=== PATIENT | male | born 1935 | race Caucasian/White ===

== ENCOUNTER 2018-05-18 05:31 | Inpatient (IN) ==
[2018-05-06 09:45] LABS: Basophils % 0.4 % (0.0-0.8); Eosinophils # 0.1 10*3/uL (0.0-0.87); Eosinophils % 0.7 % (0.00-10.9); Hematocrit 36.7 VOL% (42.0-52.0); Hemoglobin 12.2 GM/DL (14.0-18.0); Immature Granulocytes % 0.3 %; Immature Granulocytes Absolute 0.03 #; Lymphocytes # 2.1 10*3/uL (1.4-4.0); Lymphocytes % 23.9 % (21.2-54.2); Mean Corpuscular HGB Conc 33.2 GM/DL (32-36); Mean Corpuscular Hemoglobin 30 PG (27-34); Mean Corpuscular Volume 90.2 FL (87-102); Mean Platelet Volume 11.4 FL (9.6-12.0); Monocytes # 0.9 10*3/uL (0.11-0.8); Monocytes % 9.9 % (1.7-12.7); Neutrophils # 5.8 10*3/uL (1.4-7.4); Neutrophils % 64.8 % (38.7-73.9); Platelet Count 146 T/CUMM (130-400); Red Blood Count 4.07 MC/CUMM (3.8-5.5); Red Cell Distribution Width 14.1 % (9.3-17.3)
[2018-05-06 10:00] LABS: INR 1.4; PT Patient Result 14.8 SECS
[2018-05-06 10:04] LABS: Albumin 3.9 G/DL (3.4-5.0); Bilirubin,Total 1.1 MG/DL (0.2-1.0); Calcium 8.8 MG/DL (8.5-10.1); Osmolality,Calculated 282.4 MOS/KG (273-304); Potassium 4.5 MMOL/L (3.5-5.1); Total Protein 7.3 G/DL (6.4-8.3)
[2018-05-06 10:07] LABS: Partial Thromboplastin Time 45.3 SECS (0-40)
[2018-05-06 10:09] LABS: Apearance,Urine CLEAR (Clear); Bilirubin,Urine Negative (Negative); Blood, Urine Small mg/dL (Negative); Glucose,Urine (UA) Negative (Negative); Hyaline Casts,Urine 4 /LPF (0-3); Ketones,Urine Negative (Negative); Mucus,Urine Few /LPF (Occasional); Nitrite,Urine Negative (Negative); Protein,Urine Negative; RBC,Urine 4 /HPF (0-4); Urine Color Yellow (Yellow); Urine Specific Gravity 1.017 (1.001-1.035); Urine Urobilinogen < 2.0 EU/DL (0.2-1.0); WBC,Urine <1 /HPF (0-6)
[2018-05-18] MEDS ORDERED: VANCOMYCIN 1,000 MG VIAL ONE (06:28)
[2018-05-18] MEDS ORDERED: VANCOMYCIN INJ 1,000 MG in SODIUM CHLORIDE 0.9% 250 ML IV ONE (06:34)
[2018-05-18] MEDS ORDERED: ROPIVACAINE 0.5% 30 ML VIAL ONE (06:42)
[2018-05-18] MEDS ORDERED: BUPIVACAINE SPINAL 0.75% 2 ML AMP SPINAL ONE (06:49)
[2018-05-18] MEDS ORDERED: LACTATED RINGERS 1,000 ML IV SCH (07:00)
[2018-05-18] MEDS ORDERED: TRANEXAMIC ACID 1,000 MG/10 ML VIAL ONE (07:36)
[2018-05-18] MEDS ORDERED: BACITRACIN OINT 0.9 GM PACK TOP ONE (07:36)
[2018-05-18] MEDS ORDERED: ceFAZolin 1,000 MG VIAL ONE (07:36)
[2018-05-18] MEDS: LACTATED RINGERS 1,000 ML IV SCH ×2 (08:21→18:04)
[2018-05-18] MEDS ORDERED: DEXTROSE 50% 25 GM/50 ML VIAL IV PRN (08:50)
[2018-05-18] MEDS ORDERED: GLUCAGON 1 MG VIAL IM PRN (08:50)
[2018-05-18] MEDS ORDERED: ONDANSETRON 4 MG/2 ML VIAL IV PRN ×2 (08:50→09:10)
[2018-05-18] MEDS ORDERED: oxyCODONE IR 5 MG TABLET PO PRN (08:50)
[2018-05-18] MEDS ORDERED: MORPHINE 4 MG/1 ML VIAL IV PRN ×2 (08:50)
[2018-05-18] MEDS ORDERED: MAGNESIUM HYDROXIDE SUSP 30 ML UDCUP PO PRN (08:50)
[2018-05-18] MEDS ORDERED: PROPOFOL 200 MG/20 ML VIAL IV ONE (08:59)
[2018-05-18] MEDS ORDERED: fentaNYL 100 MCG/2 ML VIAL ONE (09:00)
[2018-05-18] MEDS ORDERED: ePHEDrine 50 MG/ML AMP ONE (09:00)
[2018-05-18] MEDS ORDERED: MIDAZOLAM 2 MG/2 ML VIAL ONE (09:00)
[2018-05-18] MEDS ORDERED: PHENYLEPHRINE 1 MG/10 ML SYRINGE IV ONE (09:00)
[2018-05-18] MEDS ORDERED: SODIUM CHLORIDE 0.9% 100 ML IV ONE (09:00)
[2018-05-18] MEDS ORDERED: ONDANSETRON 4 MG/2 ML VIAL ONE ×2 (09:00→09:10)
[2018-05-18] MEDS ORDERED: LACTATED RINGERS 1,000 ML IV ONE (09:00)
[2018-05-18] MEDS ORDERED: SEVOFLURANE 1 UNIT/15 MINUTE INH ONE (09:00)
[2018-05-18] MEDS ORDERED: HYDROmorphone 2 MG/1 ML VIAL ONE (09:10)
[2018-05-18] MEDS: HYDROmorphone 2 MG/1 ML VIAL IV PRN ×4 (09:15→09:30)
[2018-05-18] MEDS: METOPROLOL TARTRATE 50 MG TABLET PO SCH (10:16)
[2018-05-18] MEDS: ALPHA LIPOIC ACID 200 MG PO SCH (10:17)
[2018-05-18] MEDS: IVERMECTIN TOP SCH (10:17)
[2018-05-18] MEDS: DOCUSATE SODIUM 100 MG CAPSULE PO SCH ×2 (10:25→21:08)
[2018-05-18] MEDS: ALLOPURINOL 100 MG TABLET PO SCH (10:25)
[2018-05-18] MEDS: BUMETANIDE 1 MG TABLET PO SCH (10:25)
[2018-05-18] MEDS: GABAPENTIN 300 MG CAPSULE PO SCH ×2 (10:25→21:07)
[2018-05-18] MEDS: POTASSIUM CHLORIDE 10 MEQ TABLET PO SCH (10:26)
[2018-05-18] MEDS: PANTOPRAZOLE 40 MG TABLET PO SCH ×2 (10:26→21:08)
[2018-05-18] MEDS: KETOROLAC 15 MG/1 ML VIAL IV SCH ×3 (10:27→21:06)
[2018-05-18] MEDS: PRAVASTATIN 40 MG TABLET PO SCH (10:28)
[2018-05-18] MEDS: INSULIN LISPRO 100 UNIT/ML SUBCUT SCH ×3 (12:32→21:54)
[2018-05-18] MEDS: ACETAMINOPHEN 500 MG TABLET PO SCH ×2 (12:54→18:04)
[2018-05-18] MEDS: ceFAZolin 2,000 MG in PREMIX 1 EACH IV SCH ×2 (12:54→21:08)
[2018-05-18] MEDS: oxyCODONE IR 5 MG TABLET PO PRN (21:05)
[2018-05-18] MEDS: RIVAROXABAN 10 MG TABLET PO SCH (21:08)
[2018-05-18] MEDS: LOSARTAN 25 MG TABLET PO SCH (21:08)
[2018-05-19] MEDS: ACETAMINOPHEN 500 MG TABLET PO SCH ×2 (01:27→06:32)
[2018-05-19] MEDS: LACTATED RINGERS 1,000 ML IV SCH (02:43)
[2018-05-19] MEDS: KETOROLAC 15 MG/1 ML VIAL IV SCH (03:13)
[2018-05-19 05:52] LABS: Basophils % 0.4 % (0.0-0.8); Eosinophils # 0.2 10*3/uL (0.0-0.87); Eosinophils % 2.2 % (0.00-10.9); Hematocrit 32.5 VOL% (42.0-52.0); Hemoglobin 10.3 GM/DL (14.0-18.0); Immature Granulocytes % 0.4 %; Immature Granulocytes Absolute 0.03 #; Lymphocytes # 1.9 10*3/uL (1.4-4.0); Lymphocytes % 24.7 % (21.2-54.2); Mean Corpuscular HGB Conc 31.7 GM/DL (32-36); Mean Corpuscular Hemoglobin 29 PG (27-34); Mean Corpuscular Volume 91.8 FL (87-102); Mean Platelet Volume 12.3 FL (9.6-12.0); Monocytes % 13.5 % (1.7-12.7); Neutrophils # 4.5 10*3/uL (1.4-7.4); Neutrophils % 58.8 % (38.7-73.9); Platelet Count 129 T/CUMM (130-400); Red Blood Count 3.54 MC/CUMM (3.8-5.5); Red Cell Distribution Width 14.1 % (9.3-17.3); White Blood Count 7.7 T/CUMM (4-12)
[2018-05-19 06:08] LABS: Calcium 8.2 MG/DL (8.5-10.1); Osmolality,Calculated 280.5 MOS/KG (273-304); Potassium 4.4 MMOL/L (3.5-5.1)
[2018-05-19 06:29] LABS: Calcium 8.1 MG/DL (8.5-10.1); Osmolality,Calculated 283.4 MOS/KG (273-304); Potassium 4.4 MMOL/L (3.5-5.1)
[2018-05-19] MEDS: INSULIN LISPRO 100 UNIT/ML SUBCUT SCH ×4 (08:08→20:57)
[2018-05-19] MEDS: PRAVASTATIN 40 MG TABLET PO SCH (08:50)
[2018-05-19] MEDS: BUMETANIDE 1 MG TABLET PO SCH (08:50)
[2018-05-19] MEDS: POTASSIUM CHLORIDE 10 MEQ TABLET PO SCH (08:50)
[2018-05-19] MEDS: GABAPENTIN 300 MG CAPSULE PO SCH ×2 (08:50→20:52)
[2018-05-19] MEDS: COLCHICINE 0.6 MG TABLET PO SCH (08:50)
[2018-05-19] MEDS: METOPROLOL TARTRATE 50 MG TABLET PO SCH (08:50)
[2018-05-19] MEDS: PANTOPRAZOLE 40 MG TABLET PO SCH ×2 (08:50→20:52)
[2018-05-19] MEDS: ALLOPURINOL 100 MG TABLET PO SCH (08:51)
[2018-05-19] MEDS: DOCUSATE SODIUM 100 MG CAPSULE PO SCH ×2 (08:51→20:52)
[2018-05-19] MEDS: ALPHA LIPOIC ACID 200 MG PO SCH (08:54)
[2018-05-19] MEDS: IVERMECTIN TOP SCH (08:55)
[2018-05-19] MEDS: oxyCODONE IR 5 MG TABLET PO PRN ×3 (09:43→20:52)
[2018-05-19] MEDS: DIGOXIN 0.125 MG TABLET PO SCH (12:46)
[2018-05-19] MEDS: CELECOXIB 200 MG CAPSULE PO SCH (14:37)
[2018-05-19] MEDS: RIVAROXABAN 10 MG TABLET PO SCH (20:52)
[2018-05-19] MEDS: LOSARTAN 25 MG TABLET PO SCH (20:52)
[2018-05-20] MEDS: oxyCODONE IR 5 MG TABLET PO PRN ×2 (02:50→09:06)
[2018-05-20 04:43] LABS: Basophils % 0.4 % (0.0-0.8); Eosinophils # 0.2 10*3/uL (0.0-0.87); Eosinophils % 2.3 % (0.00-10.9); Hematocrit 32.5 VOL% (42.0-52.0); Hemoglobin 10.1 GM/DL (14.0-18.0); Immature Granulocytes % 0.6 %; Immature Granulocytes Absolute 0.05 #; Lymphocytes # 1.5 10*3/uL (1.4-4.0); Lymphocytes % 18.3 % (21.2-54.2); Mean Corpuscular HGB Conc 31.1 GM/DL (32-36); Mean Corpuscular Hemoglobin 29 PG (27-34); Mean Corpuscular Volume 92.1 FL (87-102); Mean Platelet Volume 11.7 FL (9.6-12.0); Monocytes # 1.1 10*3/uL (0.11-0.8); Monocytes % 13.6 % (1.7-12.7); Neutrophils # 5.4 10*3/uL (1.4-7.4); Neutrophils % 64.8 % (38.7-73.9); Platelet Count 130 T/CUMM (130-400); Red Blood Count 3.53 MC/CUMM (3.8-5.5); Red Cell Distribution Width 14.2 % (9.3-17.3); White Blood Count 8.4 T/CUMM (4-12)
[2018-05-20 05:11] LABS: Calcium 8.3 MG/DL (8.5-10.1); Potassium 4.5 MMOL/L (3.5-5.1)
[2018-05-20] MEDS: GABAPENTIN 300 MG CAPSULE PO SCH (09:07)
[2018-05-20] MEDS: PRAVASTATIN 40 MG TABLET PO SCH (09:07)
[2018-05-20] MEDS: ALLOPURINOL 100 MG TABLET PO SCH (09:07)
[2018-05-20] MEDS: IVERMECTIN TOP SCH (09:07)
[2018-05-20] MEDS: METOPROLOL TARTRATE 50 MG TABLET PO SCH (09:07)
[2018-05-20] MEDS: POTASSIUM CHLORIDE 10 MEQ TABLET PO SCH (09:07)
[2018-05-20] MEDS: PANTOPRAZOLE 40 MG TABLET PO SCH (09:07)
[2018-05-20] MEDS: BUMETANIDE 1 MG TABLET PO SCH (09:08)
[2018-05-20] MEDS: ALPHA LIPOIC ACID 200 MG PO SCH (09:08)
[2018-05-20] MEDS: DOCUSATE SODIUM 100 MG CAPSULE PO SCH (09:08)
[2018-05-20] MEDS: CELECOXIB 200 MG CAPSULE PO SCH (09:08)
[2018-05-20] MEDS: INSULIN LISPRO 100 UNIT/ML SUBCUT SCH ×2 (09:08→12:13)
[2018-05-20] MEDS: COLCHICINE 0.6 MG TABLET PO SCH (09:08)
[2018-05-20 11:21] VITALS: BP 113/48
[2018-05-20] MEDS: DIGOXIN 0.125 MG TABLET PO SCH (13:50)
== END 2018-05-20 14:30 | disposition home health service (06) | DRG 470 ==
LOC: N.OR 05:31 → N.SDSINP 05:32 → N.3E 09:03
PROVIDERS: ADMIT Orthopaedic Surgery; ATTEND Orthopaedic Surgery

== ENCOUNTER 2018-10-16 16:25 | Inpatient (IN) ==
[2018-10-16 17:57] LABS: Basophils # 0.2 10*3/uL (0.0-0.2); Basophils % 0.9 % (0.0-0.8); Eosinophils # 0.1 10*3/uL (0.0-0.87); Eosinophils % 0.4 % (0.00-10.9); Hematocrit 33.1 VOL% (42.0-52.0); Hemoglobin 10.5 GM/DL (14.0-18.0); Immature Granulocytes % 2.7 %; Immature Granulocytes Absolute 0.51 #; Lymphocytes # 2.3 10*3/uL (1.4-4.0); Mean Corpuscular HGB Conc 31.7 GM/DL (32-36); Mean Corpuscular Hemoglobin 30 PG (27-34); Mean Corpuscular Volume 93.5 FL (87-102); Mean Platelet Volume 12.3 FL (9.6-12.0); Monocytes # 0.6 10*3/uL (0.11-0.8); Monocytes % 3.4 % (1.7-12.7); NRBC # 0.03 10*3/uL; Neutrophils # 15.1 10*3/uL (1.4-7.4); Neutrophils % 80.6 % (38.7-73.9); Platelet Count 81 T/CUMM (130-400); Red Blood Count 3.54 MC/CUMM (3.8-5.5); Red Cell Distribution Width 15.8 % (9.3-17.3); White Blood Count 18.7 T/CUMM (4-12)
[2018-10-16 18:07] LABS: INR 1.2; PT Patient Result 13.2 SECS; Partial Thromboplastin Time 29.7 SECS (0-40)
[2018-10-16 18:39] LABS: Anisocytosis 1+; Hypochromasia Slight; Lymphocytes 14 % (20-55); Macrocytosis 1+; Microcytosis 1+; Ovalocytes Slight; Platelet Estimate Decreased; Poikilocytosis 1+; Segmented Neutrophils 83 % (50-85); Total Cells Counted 100
[2018-10-16] MEDS ORDERED: CLINDAMYCIN INJ 900 MG in PREMIX 1 EACH IV STA (19:22)
[2018-10-16] MEDS ORDERED: MEROPENEM 1,000 MG in SODIUM CHLORIDE 0.9% 100 ML IV STA (19:22)
[2018-10-16 19:28] LABS: Alanine Aminotransferase 91 U/L (16-61); Albumin 3.5 G/DL (3.4-5.0); Alkaline Phosphatase 178 U/L (45-117); Aspartate Amino Transferase 48 U/L (0-37); Blood Urea Nitrogen 25 MG/DL (7-18); Calcium 8.3 MG/DL (8.5-10.1); Glucose 156 MG/DL (74-106); Osmolality,Calculated 287.3 MOS/KG (273-304); Potassium 3.6 MMOL/L (3.5-5.1); Sodium 141 MMOL/L (136-145); Total Protein 6.4 G/DL (6.4-8.3); Troponin I 0.017 NG/ML (0.00-0.045)
[2018-10-16] MEDS ORDERED: ONDANSETRON 4 MG/2 ML VIAL IV PRN (20:06)
[2018-10-16] MEDS ORDERED: GLUCAGON 1 MG VIAL IM PRN (20:06)
[2018-10-16] MEDS ORDERED: ACETAMINOPHEN 500 MG TABLET PO PRN (20:06)
[2018-10-16] MEDS ORDERED: DEXTROSE 50% 25 GM/50 ML SYRINGE IV PRN (20:06)
[2018-10-16] MEDS ORDERED: SODIUM CHLORIDE 0.9% 1,000 ML IV STA (20:47)
[2018-10-16] MEDS: INSULIN REGULAR 100 UNIT/ML SUBCUT SCH (22:21)
[2018-10-16] MEDS: SIMVASTATIN 20 MG TABLET PO SCH (22:44)
[2018-10-16] MEDS: RIVAROXABAN 20 MG TABLET PO SCH (22:44)
[2018-10-16] MEDS: GABAPENTIN 300 MG CAPSULE PO SCH (22:44)
[2018-10-17] MEDS: ALBUTEROL/IPRATROPIUM 3 ML NEB RESP TX SCH ×4 (00:28→18:56)
[2018-10-17] MEDS: MEROPENEM 1,000 MG in SODIUM CHLORIDE 0.9% 100 ML IV SCH ×3 (03:52→20:13)
[2018-10-17] MEDS: CLINDAMYCIN INJ 900 MG in PREMIX 1 EACH IV SCH ×3 (04:24→20:47)
[2018-10-17] MEDS: POTASSIUM CHLORIDE 10 MEQ TABLET PO SCH (08:51)
[2018-10-17] MEDS: GABAPENTIN 300 MG CAPSULE PO SCH ×2 (08:51→20:11)
[2018-10-17] MEDS: PANTOPRAZOLE 40 MG TABLET PO SCH (08:51)
[2018-10-17] MEDS: BUMETANIDE 1 MG TABLET PO SCH (08:51)
[2018-10-17] MEDS: LOSARTAN 25 MG TABLET PO SCH (08:51)
[2018-10-17] MEDS: METOPROLOL TARTRATE 50 MG TABLET PO SCH (08:56)
[2018-10-17] MEDS: INSULIN REGULAR 100 UNIT/ML SUBCUT SCH ×4 (08:56→20:11)
[2018-10-17] MEDS: DIGOXIN 0.125 MG TABLET PO SCH (12:41)
[2018-10-17] MEDS: methylPREDNISolone SOD SUC 40 MG/1 ML VIAL IV SCH (14:50)
[2018-10-17] MEDS: metFORMIN 500 MG TABLET PO SCH (17:41)
[2018-10-17] MEDS: SIMVASTATIN 20 MG TABLET PO SCH (20:10)
[2018-10-17] MEDS: RIVAROXABAN 20 MG TABLET PO SCH (20:11)
[2018-10-18] MEDS: ALBUTEROL/IPRATROPIUM 3 ML NEB RESP TX SCH ×4 (00:15→20:13)
[2018-10-18] MEDS: methylPREDNISolone SOD SUC 40 MG/1 ML VIAL IV SCH ×2 (01:57→13:58)
[2018-10-18] MEDS: MEROPENEM 1,000 MG in SODIUM CHLORIDE 0.9% 100 ML IV SCH ×3 (03:43→20:18)
[2018-10-18] MEDS: CLINDAMYCIN INJ 900 MG in PREMIX 1 EACH IV SCH ×3 (04:16→21:03)
[2018-10-18 05:40] LABS: Hemoglobin 10.2 GM/DL (14.0-18.0); Immature Granulocytes % 3.7 %; Immature Granulocytes Absolute 0.89 #; Lymphocytes # 0.8 10*3/uL (1.4-4.0); Lymphocytes % 3.5 % (21.2-54.2); Mean Corpuscular HGB Conc 31.9 GM/DL (32-36); Mean Corpuscular Hemoglobin 29 PG (27-34); Mean Corpuscular Volume 91.2 FL (87-102); Monocytes # 1.2 10*3/uL (0.11-0.8); NRBC # 0.05 10*3/uL; Neutrophils # 21.2 10*3/uL (1.4-7.4); Neutrophils % 87.8 % (38.7-73.9); Red Blood Count 3.51 MC/CUMM (3.8-5.5); Red Cell Distribution Width 15.9 % (9.3-17.3); White Blood Count 24.2 T/CUMM (4-12)
[2018-10-18 05:43] LABS: Platelet Count 57 T/CUMM (130-400)
[2018-10-18 06:02] LABS: Band Neutrophils 3 % (0-10); Hypochromasia 1+; Lymphocytes 5 % (20-55); Ovalocytes Slight; Platelet Estimate Decreased; Segmented Neutrophils 91 % (50-85); Total Cells Counted 100
[2018-10-18 06:03] LABS: Microcytosis 1+
[2018-10-18 06:22] LABS: Calcium 8.8 MG/DL (8.5-10.1); Osmolality,Calculated 288.1 MOS/KG (273-304)
[2018-10-18] MEDS: POTASSIUM CHLORIDE 10 MEQ TABLET PO SCH (08:31)
[2018-10-18] MEDS: PANTOPRAZOLE 40 MG TABLET PO SCH (08:31)
[2018-10-18] MEDS: BUMETANIDE 1 MG TABLET PO SCH (08:31)
[2018-10-18] MEDS: LOSARTAN 25 MG TABLET PO SCH (08:31)
[2018-10-18] MEDS: GABAPENTIN 300 MG CAPSULE PO SCH ×2 (08:31→20:13)
[2018-10-18] MEDS: METOPROLOL TARTRATE 50 MG TABLET PO SCH (08:31)
[2018-10-18] MEDS: INSULIN REGULAR 100 UNIT/ML SUBCUT SCH ×4 (08:32→20:13)
[2018-10-18] MEDS: DIGOXIN 0.125 MG TABLET PO SCH (13:58)
[2018-10-18] MEDS: metFORMIN 500 MG TABLET PO SCH (17:54)
[2018-10-18] MEDS: RIVAROXABAN 20 MG TABLET PO SCH (20:13)
[2018-10-18] MEDS: SIMVASTATIN 20 MG TABLET PO SCH (20:13)
[2018-10-19] MEDS: ALBUTEROL/IPRATROPIUM 3 ML NEB RESP TX SCH ×2 (00:50→08:20)
[2018-10-19] MEDS: methylPREDNISolone SOD SUC 40 MG/1 ML VIAL IV SCH (02:00)
[2018-10-19] MEDS: MEROPENEM 1,000 MG in SODIUM CHLORIDE 0.9% 100 ML IV SCH (04:09)
[2018-10-19] MEDS: CLINDAMYCIN INJ 900 MG in PREMIX 1 EACH IV SCH (04:39)
[2018-10-19] MEDS: INSULIN REGULAR 100 UNIT/ML SUBCUT SCH (07:54)
[2018-10-19 08:02] VITALS: BP 162/72
[2018-10-19] MEDS: METOPROLOL TARTRATE 50 MG TABLET PO SCH (08:47)
[2018-10-19] MEDS: BUMETANIDE 1 MG TABLET PO SCH (08:47)
[2018-10-19] MEDS: PANTOPRAZOLE 40 MG TABLET PO SCH (08:48)
[2018-10-19] MEDS: GABAPENTIN 300 MG CAPSULE PO SCH (08:48)
[2018-10-19] MEDS: POTASSIUM CHLORIDE 10 MEQ TABLET PO SCH (08:48)
[2018-10-19] MEDS: LOSARTAN 25 MG TABLET PO SCH (08:48)
[2018-10-19] MEDS ORDERED: Omeprazole [Prilosec] 20 MG PO SCH (09:00)
[2018-10-19] MEDS ORDERED: BUMETANIDE 1 MG TABLET PO SCH (09:00)
[2018-10-19] MEDS ORDERED: ALPHA LIPOIC ACID 200 MG PO SCH (09:00)
[2018-10-19] MEDS ORDERED: TAMSULOSIN 0.4 MG CAPSULE PO SCH (09:00)
[2018-10-19] MEDS ORDERED: CELECOXIB 200 MG CAPSULE PO SCH (09:00)
[2018-10-19] MEDS ORDERED: IVERMECTIN TOP SCH (09:00)
[2018-10-19] MEDS ORDERED: COLCHICINE 0.6 MG CAPSULE PO SCH (09:00)
[2018-10-19] MEDS ORDERED: ALLOPURINOL 100 MG TABLET PO SCH (21:00)
== END 2018-10-19 10:55 | disposition home or self-care (01) | DRG 194 ==
LOC: N.ED 16:25 → N.EDINP 20:05 → N.4E 21:29
PROVIDERS: ADMIT Family Medicine; ATTEND Family Medicine

== ENCOUNTER 2018-11-09 10:52 | Inpatient (IN) ==
[2018-11-09 11:44] LABS: Basophils % 0.1 % (0.0-0.8); Hematocrit 31.3 VOL% (42.0-52.0); Hemoglobin 9.9 GM/DL (14.0-18.0); Immature Granulocytes Absolute 2.05 #; Lymphocytes # 1.9 10*3/uL (1.4-4.0); Lymphocytes % 5.7 % (21.2-54.2); Mean Corpuscular HGB Conc 31.6 GM/DL (32-36); Mean Corpuscular Volume 96.6 FL (87-102); Mean Platelet Volume 10.9 FL (9.6-12.0); Monocytes % 7.5 % (1.7-12.7); NRBC # 0.23 10*3/uL; Neutrophils % 80.7 % (38.7-73.9); Platelet Count 80 T/CUMM (130-400); Red Blood Count 3.24 MC/CUMM (3.8-5.5); Red Cell Distribution Width 20.2 % (9.3-17.3); White Blood Count 34.3 T/CUMM (4-12)
[2018-11-09 11:52] LABS: INR 1.4; PT Patient Result 14.9 SECS; Partial Thromboplastin Time 33.9 SECS (0-40)
[2018-11-09 12:05] LABS: Anisocytosis 2+; Band Neutrophils 25 % (0-10); Lymphocytes 8 % (20-55); Metamyelocytes 1 %; Platelet Estimate Decreased; Segmented Neutrophils 62 % (50-85); Total Cells Counted 100
[2018-11-09 12:06] LABS: Macrocytosis 1+; Poikilocytosis Slight; Polychromasia Slight
[2018-11-09 12:19] LABS: Albumin 3.9 G/DL (3.4-5.0); Bilirubin,Total 1.8 MG/DL (0.2-1.0); Calcium 8.8 MG/DL (8.5-10.1); Osmolality,Calculated 289.8 MOS/KG (273-304); Total Protein 6.4 G/DL (6.4-8.3)
[2018-11-09] MEDS ORDERED: FUROSEMIDE 40 MG/4 ML VIAL IV STA (14:07)
[2018-11-09] MEDS ORDERED: DEXTROSE 50% 25 GM/50 ML SYRINGE IV PRN (16:41)
[2018-11-09] MEDS ORDERED: ACETAMINOPHEN 325 MG TABLET PO PRN (16:41)
[2018-11-09] MEDS ORDERED: MORPHINE 4 MG/1 ML VIAL IV PRN (16:41)
[2018-11-09] MEDS ORDERED: ONDANSETRON 4 MG/2 ML VIAL IV PRN (16:41)
[2018-11-09] MEDS ORDERED: SODIUM CHLORIDE 0.9% 1,000 ML IV SCH (16:41)
[2018-11-09] MEDS ORDERED: GLUCAGON 1 MG VIAL IM PRN (16:41)
[2018-11-09] MEDS: ALBUTEROL/IPRATROPIUM 3 ML NEB RESP TX SCH ×2 (17:05→19:50)
[2018-11-09] MEDS: INSULIN REGULAR 100 UNIT/ML SUBCUT SCH (18:35)
[2018-11-09] MEDS: FUROSEMIDE 40 MG/4 ML VIAL IV SCH (18:36)
[2018-11-09] MEDS: CEFTAROLINE 600 MG in SODIUM CHLORIDE 0.9% 100 ML IV SCH (18:37)
[2018-11-09] MEDS ORDERED: MAGNESIUM SULF RIDER 2 GM in PREMIX 1 EACH IV ONE (20:33)
[2018-11-09] MEDS: GABAPENTIN 600 MG TABLET PO SCH (21:30)
[2018-11-09] MEDS: PANTOPRAZOLE 40 MG TABLET PO SCH (21:30)
[2018-11-09] MEDS: SIMVASTATIN 20 MG TABLET PO SCH (21:30)
[2018-11-09] MEDS: RIVAROXABAN 20 MG TABLET PO SCH (21:30)
[2018-11-09] MEDS: ALLOPURINOL 100 MG TABLET PO SCH (21:30)
[2018-11-09] MEDS: DOCUSATE SODIUM 100 MG CAPSULE PO SCH (21:31)
[2018-11-09] MEDS: LOSARTAN 25 MG TABLET PO SCH (21:31)
[2018-11-09] MEDS: TAMSULOSIN 0.4 MG CAPSULE PO SCH (21:31)
[2018-11-10] MEDS: INSULIN REGULAR 100 UNIT/ML SUBCUT SCH ×4 (00:52→18:40)
[2018-11-10 04:33] LABS: Basophils # 0.1 10*3/uL (0.0-0.2); Basophils % 0.6 % (0.0-0.8); Eosinophils % 0.1 % (0.00-10.9); Hematocrit 26.7 VOL% (42.0-52.0); Hemoglobin 8.3 GM/DL (14.0-18.0); Immature Granulocytes % 5.3 %; Immature Granulocytes Absolute 1.29 #; Lymphocytes # 1.8 10*3/uL (1.4-4.0); Lymphocytes % 7.4 % (21.2-54.2); Mean Corpuscular HGB Conc 31.1 GM/DL (32-36); Mean Corpuscular Volume 97.8 FL (87-102); Mean Platelet Volume 10.8 FL (9.6-12.0); Monocytes % 7.3 % (1.7-12.7); NRBC # 0.16 10*3/uL; Neutrophils % 79.3 % (38.7-73.9); Platelet Count 66 T/CUMM (130-400); Red Blood Count 2.73 MC/CUMM (3.8-5.5); Red Cell Distribution Width 20.6 % (9.3-17.3); White Blood Count 24.5 T/CUMM (4-12)
[2018-11-10 05:01] LABS: Albumin 3.3 G/DL (3.4-5.0); Bilirubin,Total 1.7 MG/DL (0.2-1.0); Calcium 8.6 MG/DL (8.5-10.1); Osmolality,Calculated 284.1 MOS/KG (273-304); Total Protein 5.7 G/DL (6.4-8.3)
[2018-11-10 05:47] LABS: Band Neutrophils 4 % (0-10); Eosinophils 1 % (0-10); Hypochromasia Slight; Lymphocytes 3 % (20-55); Microcytosis Slight; Ovalocytes Slight; Platelet Estimate Decreased; Segmented Neutrophils 90 % (50-85); Total Cells Counted 100
[2018-11-10 05:49] LABS: Anisocytosis 2+; Macrocytosis 1+; Polychromasia Slight
[2018-11-10] MEDS: CEFTAROLINE 600 MG in SODIUM CHLORIDE 0.9% 100 ML IV SCH ×2 (06:44→20:02)
[2018-11-10] MEDS: ALBUTEROL/IPRATROPIUM 3 ML NEB RESP TX SCH ×3 (07:30→14:12)
[2018-11-10 08:35] LABS: Troponin I 0.027 NG/ML (0.00-0.045)
[2018-11-10] MEDS ORDERED: IVERMECTIN TOP SCH (09:00)
[2018-11-10] MEDS ORDERED: PANTOPRAZOLE 40 MG TABLET PO SCH (09:00)
[2018-11-10] MEDS ORDERED: ALPHA LIPOIC ACID 200 MG PO SCH (09:00)
[2018-11-10] MEDS: DIGOXIN 0.125 MG TABLET PO SCH (09:56)
[2018-11-10] MEDS: COLCHICINE 0.6 MG CAPSULE PO SCH (09:56)
[2018-11-10] MEDS: TAMSULOSIN 0.4 MG CAPSULE PO SCH ×2 (09:57→22:09)
[2018-11-10] MEDS: PANTOPRAZOLE 40 MG TABLET PO SCH ×2 (09:57→22:10)
[2018-11-10] MEDS: FUROSEMIDE 40 MG/4 ML VIAL IV SCH ×2 (09:57→17:00)
[2018-11-10] MEDS: CELECOXIB 200 MG CAPSULE PO SCH (09:57)
[2018-11-10] MEDS: GABAPENTIN 600 MG TABLET PO SCH ×2 (09:57→22:08)
[2018-11-10] MEDS: POTASSIUM CHLORIDE 10 MEQ TABLET PO SCH (09:57)
[2018-11-10] MEDS: BUMETANIDE 1 MG TABLET PO SCH (09:57)
[2018-11-10] MEDS: DOCUSATE SODIUM 100 MG CAPSULE PO SCH ×2 (09:57→22:09)
[2018-11-10] MEDS: POLYETHYLENE GLYCOL POWDER 17 GM PACK PO SCH (09:57)
[2018-11-10] MEDS: METOPROLOL TARTRATE 50 MG TABLET PO SCH (09:57)
[2018-11-10 10:53] LABS: Troponin I 0.024 NG/ML (0.00-0.045)
[2018-11-10 14:01] LABS: Troponin I 0.021 NG/ML (0.00-0.045)
[2018-11-10 17:21] LABS: Troponin I 0.019 NG/ML (0.00-0.045)
[2018-11-10] MEDS: ALLOPURINOL 100 MG TABLET PO SCH (22:09)
[2018-11-10] MEDS: RIVAROXABAN 20 MG TABLET PO SCH (22:09)
[2018-11-10] MEDS: SIMVASTATIN 20 MG TABLET PO SCH (22:10)
[2018-11-10] MEDS: LOSARTAN 25 MG TABLET PO SCH (22:10)
[2018-11-11] MEDS: INSULIN REGULAR 100 UNIT/ML SUBCUT SCH ×4 (03:18→19:01)
[2018-11-11] MEDS: ALBUTEROL/IPRATROPIUM 3 ML NEB RESP TX SCH ×5 (04:28→19:58)
[2018-11-11] MEDS: CEFTAROLINE 600 MG in SODIUM CHLORIDE 0.9% 100 ML IV SCH ×2 (07:23→19:43)
[2018-11-11] MEDS: BUMETANIDE 1 MG TABLET PO SCH (09:51)
[2018-11-11] MEDS: DIGOXIN 0.125 MG TABLET PO SCH (09:51)
[2018-11-11] MEDS: COLCHICINE 0.6 MG CAPSULE PO SCH (09:51)
[2018-11-11] MEDS: PANTOPRAZOLE 40 MG TABLET PO SCH ×2 (09:51→21:17)
[2018-11-11] MEDS: TAMSULOSIN 0.4 MG CAPSULE PO SCH ×2 (09:51→21:17)
[2018-11-11] MEDS: DOCUSATE SODIUM 100 MG CAPSULE PO SCH ×2 (09:51→21:18)
[2018-11-11] MEDS: GABAPENTIN 600 MG TABLET PO SCH ×2 (09:51→21:17)
[2018-11-11] MEDS: CELECOXIB 200 MG CAPSULE PO SCH (09:51)
[2018-11-11] MEDS: POTASSIUM CHLORIDE 10 MEQ TABLET PO SCH (09:52)
[2018-11-11] MEDS: METOPROLOL TARTRATE 50 MG TABLET PO SCH (09:52)
[2018-11-11] MEDS: POLYETHYLENE GLYCOL POWDER 17 GM PACK PO SCH (09:52)
[2018-11-11] MEDS: FUROSEMIDE 40 MG/4 ML VIAL IV SCH ×2 (09:58→17:31)
[2018-11-11] MEDS: RIVAROXABAN 20 MG TABLET PO SCH (21:17)
[2018-11-11] MEDS: LOSARTAN 25 MG TABLET PO SCH (21:18)
[2018-11-11] MEDS: ALLOPURINOL 100 MG TABLET PO SCH (21:18)
[2018-11-11] MEDS: SIMVASTATIN 20 MG TABLET PO SCH (21:18)
[2018-11-12] MEDS: INSULIN REGULAR 100 UNIT/ML SUBCUT SCH ×3 (00:15→12:36)
[2018-11-12 04:41] LABS: Basophils # 0.1 10*3/uL (0.0-0.2); Basophils % 0.4 % (0.0-0.8); Eosinophils # 0.1 10*3/uL (0.0-0.87); Eosinophils % 0.4 % (0.00-10.9); Hematocrit 26.4 VOL% (42.0-52.0); Hemoglobin 8.4 GM/DL (14.0-18.0); Immature Granulocytes % 3.3 %; Immature Granulocytes Absolute 0.59 #; Lymphocytes # 1.5 10*3/uL (1.4-4.0); Lymphocytes % 8.3 % (21.2-54.2); Mean Corpuscular HGB Conc 31.8 GM/DL (32-36); Mean Corpuscular Volume 98.9 FL (87-102); Monocytes % 6.6 % (1.7-12.7); NRBC # 0.03 10*3/uL; Platelet Count 74 T/CUMM (130-400); Red Blood Count 2.67 MC/CUMM (3.8-5.5); Red Cell Distribution Width 21.8 % (9.3-17.3); White Blood Count 18.1 T/CUMM (4-12)
[2018-11-12 05:01] LABS: Calcium 8.7 MG/DL (8.5-10.1); Osmolality,Calculated 282.4 MOS/KG (273-304)
[2018-11-12 05:11] LABS: Band Neutrophils 6 % (0-10); Lymphocytes 7 % (20-55); Segmented Neutrophils 83 % (50-85); Total Cells Counted 100
[2018-11-12 05:12] LABS: Anisocytosis 1+; Hypochromasia 1+; Ovalocytes 1+; Platelet Estimate Decreased; Tear Drop Cells 1+
[2018-11-12] MEDS: CEFTAROLINE 600 MG in SODIUM CHLORIDE 0.9% 100 ML IV SCH (06:11)
[2018-11-12] MEDS: ALBUTEROL/IPRATROPIUM 3 ML NEB RESP TX SCH ×2 (07:20→10:58)
[2018-11-12] MEDS: POLYETHYLENE GLYCOL POWDER 17 GM PACK PO SCH (09:08)
[2018-11-12] MEDS: DIGOXIN 0.125 MG TABLET PO SCH (09:09)
[2018-11-12] MEDS: GABAPENTIN 600 MG TABLET PO SCH (09:10)
[2018-11-12] MEDS: BUMETANIDE 1 MG TABLET PO SCH (09:10)
[2018-11-12] MEDS: COLCHICINE 0.6 MG CAPSULE PO SCH (09:10)
[2018-11-12] MEDS: POTASSIUM CHLORIDE 10 MEQ TABLET PO SCH (09:10)
[2018-11-12] MEDS: DOCUSATE SODIUM 100 MG CAPSULE PO SCH (09:10)
[2018-11-12] MEDS: PANTOPRAZOLE 40 MG TABLET PO SCH (09:10)
[2018-11-12] MEDS: TAMSULOSIN 0.4 MG CAPSULE PO SCH (09:10)
[2018-11-12] MEDS: CELECOXIB 200 MG CAPSULE PO SCH (09:10)
[2018-11-12] MEDS: METOPROLOL TARTRATE 50 MG TABLET PO SCH (09:10)
[2018-11-12] MEDS: FUROSEMIDE 40 MG/4 ML VIAL IV SCH (09:11)
[2018-11-12 12:28] VITALS: BP 106/51
== END 2018-11-12 13:05 | disposition home or self-care (01) | DRG 603 ==
LOC: N.ED 10:52 → N.EDINP 14:55 → N.4E 15:23
PROVIDERS: ADMIT Family Medicine; ATTEND Family Medicine

== ENCOUNTER 2019-03-23 15:13 | Inpatient (IN) ==
[2019-03-23] MEDS ORDERED: DEXTROSE 10% 250 ML BAG IV PRN (16:05)
[2019-03-23] MEDS ORDERED: ACETAMINOPHEN 325 MG TABLET PO PRN (16:05)
[2019-03-23] MEDS ORDERED: NALOXONE 0.4 MG/ML VIAL IV PRN (16:05)
[2019-03-23] MEDS ORDERED: GLUCAGON 1 MG VIAL IM PRN (16:05)
[2019-03-23] MEDS ORDERED: MORPHINE 4 MG/1 ML VIAL IV PRN (16:05)
[2019-03-23] MEDS ORDERED: ONDANSETRON 4 MG/2 ML VIAL IV PRN (16:05)
[2019-03-23] MEDS ORDERED: SODIUM CHLORIDE 0.45% 1,000 ML IV SCH (16:30)
[2019-03-23] MEDS: methylPREDNISolone SOD SUC 40 MG/1 ML VIAL IV SCH (18:15)
[2019-03-23] MEDS: LEVOFLOXACIN INJ 500 MG in PREMIX 1 EACH IV SCH (18:17)
[2019-03-23] MEDS: INSULIN LISPRO 100 UNIT/ML SUBCUT SCH ×2 (18:17→20:23)
[2019-03-23 19:16] LABS: Basophils % 0.2 % (0.0-0.8); Eosinophils % 0.3 % (0.00-10.9); Hematocrit 36.6 VOL% (42.0-52.0); Hemoglobin 11.9 GM/DL (14.0-18.0); Immature Granulocytes % 0.7 %; Immature Granulocytes Absolute 0.07 #; Lymphocytes # 0.7 10*3/uL (1.4-4.0); Lymphocytes % 7.5 % (21.2-54.2); Mean Corpuscular HGB Conc 32.5 GM/DL (32-36); Mean Corpuscular Volume 87.1 FL (87-102); Mean Platelet Volume 9.9 FL (9.6-12.0); Monocytes % 5.7 % (1.7-12.7); Neutrophils % 85.6 % (38.7-73.9); Platelet Count 153 T/CUMM (130-400); Red Cell Distribution Width 18.4 % (9.3-17.3); White Blood Count 9.5 T/CUMM (4-12)
[2019-03-23 19:28] LABS: Albumin 3.1 G/DL (3.4-5.0); Calcium 9.2 MG/DL (8.5-10.1); Osmolality,Calculated 281.8 MOS/KG (273-304); Total Protein 6.8 G/DL (6.4-8.3)
[2019-03-23 19:30] LABS: Troponin I 0.025 NG/ML (0.00-0.045)
[2019-03-23] MEDS: ALBUTEROL 2.5 MG/3 ML NEB RESP TX SCH (20:20)
[2019-03-23 21:08] LABS: Troponin I < 0.015 NG/ML (0.00-0.045)
[2019-03-23] MEDS: GABAPENTIN 600 MG TABLET PO SCH (21:17)
[2019-03-23] MEDS: SIMVASTATIN 20 MG TABLET PO SCH (21:18)
[2019-03-23] MEDS: LOSARTAN 25 MG TABLET PO SCH (21:18)
[2019-03-23] MEDS: DOCUSATE SODIUM 100 MG CAPSULE PO SCH (21:18)
[2019-03-23] MEDS: TAMSULOSIN 0.4 MG CAPSULE PO SCH (21:18)
[2019-03-23] MEDS: RIVAROXABAN 20 MG TABLET PO SCH (21:18)
[2019-03-23] MEDS: ALLOPURINOL 100 MG TABLET PO SCH (21:23)
[2019-03-23 22:24] LABS: Apearance,Urine CLEAR (Clear); Bilirubin,Urine Negative (Negative); Blood, Urine Negative (Negative); Glucose,Urine (UA) 50 mg/dL (Negative); Hyaline Casts,Urine 1 /LPF (0-3); Ketones,Urine Negative (Negative); Mucus,Urine Occasional /LPF (Occasional); Nitrite,Urine Negative (Negative); Protein,Urine Negative; RBC,Urine 1 /HPF (0-4); Urine Color Yellow (Yellow); Urine Specific Gravity 1.019 (1.001-1.035); Urine Urobilinogen < 2.0 EU/DL (0.2-1.0); WBC,Urine <1 /HPF (0-6)
[2019-03-24] MEDS: ALBUTEROL 2.5 MG/3 ML NEB RESP TX SCH ×4 (00:04→19:52)
[2019-03-24 01:08] LABS: Troponin I 0.016 NG/ML (0.00-0.045)
[2019-03-24 01:13] LABS: Risk Ratio 2.2
[2019-03-24] MEDS: methylPREDNISolone SOD SUC 40 MG/1 ML VIAL IV SCH ×3 (02:07→16:32)
[2019-03-24 06:21] LABS: Troponin I < 0.015 NG/ML (0.00-0.045)
[2019-03-24] MEDS ORDERED: ALPHA LIPOIC ACID 200 MG PO SCH (09:00)
[2019-03-24] MEDS: INSULIN LISPRO 100 UNIT/ML SUBCUT SCH ×4 (10:26→21:22)
[2019-03-24] MEDS: FUROSEMIDE 40 MG/4 ML VIAL IV SCH ×2 (10:26→16:32)
[2019-03-24] MEDS: GABAPENTIN 600 MG TABLET PO SCH ×2 (10:27→21:21)
[2019-03-24] MEDS: METOPROLOL TARTRATE 50 MG TABLET PO SCH (10:28)
[2019-03-24] MEDS: PANTOPRAZOLE 40 MG TABLET PO SCH (10:28)
[2019-03-24] MEDS: TAMSULOSIN 0.4 MG CAPSULE PO SCH ×2 (10:28→21:22)
[2019-03-24] MEDS: POTASSIUM CHLORIDE 10 MEQ TABLET PO SCH (10:28)
[2019-03-24] MEDS: DOCUSATE SODIUM 100 MG CAPSULE PO SCH ×2 (10:28→21:22)
[2019-03-24] MEDS: DIGOXIN 0.125 MG TABLET PO SCH (10:28)
[2019-03-24] MEDS: POLYETHYLENE GLYCOL POWDER 17 GM PACK PO SCH (10:28)
[2019-03-24] MEDS: cefTRIAXone 1,000 MG in SYRINGE 1 EACH IV SCH (17:24)
[2019-03-24] MEDS: SIMVASTATIN 20 MG TABLET PO SCH (21:21)
[2019-03-24] MEDS: LOSARTAN 25 MG TABLET PO SCH (21:22)
[2019-03-24] MEDS: RIVAROXABAN 20 MG TABLET PO SCH (21:22)
[2019-03-24] MEDS: ALLOPURINOL 100 MG TABLET PO SCH (21:22)
[2019-03-24] MEDS: LEVOFLOXACIN INJ 500 MG in PREMIX 1 EACH IV SCH (21:23)
[2019-03-25] MEDS: methylPREDNISolone SOD SUC 40 MG/1 ML VIAL IV SCH ×3 (01:12→16:36)
[2019-03-25] MEDS: ALBUTEROL 2.5 MG/3 ML NEB RESP TX SCH ×4 (01:35→19:31)
[2019-03-25] MEDS: PANTOPRAZOLE 40 MG TABLET PO SCH (09:26)
[2019-03-25] MEDS: METOPROLOL TARTRATE 50 MG TABLET PO SCH (09:26)
[2019-03-25] MEDS: DOCUSATE SODIUM 100 MG CAPSULE PO SCH ×2 (09:26→21:35)
[2019-03-25] MEDS: DIGOXIN 0.125 MG TABLET PO SCH (09:26)
[2019-03-25] MEDS: GABAPENTIN 600 MG TABLET PO SCH ×2 (09:26→21:35)
[2019-03-25] MEDS: TAMSULOSIN 0.4 MG CAPSULE PO SCH ×2 (09:26→21:36)
[2019-03-25] MEDS: FUROSEMIDE 40 MG/4 ML VIAL IV SCH ×2 (09:27→16:36)
[2019-03-25] MEDS: POTASSIUM CHLORIDE 10 MEQ TABLET PO SCH (09:27)
[2019-03-25] MEDS: INSULIN LISPRO 100 UNIT/ML SUBCUT SCH ×4 (09:28→21:51)
[2019-03-25] MEDS: POLYETHYLENE GLYCOL POWDER 17 GM PACK PO SCH (09:29)
[2019-03-25] MEDS: LEVOFLOXACIN INJ 500 MG in PREMIX 1 EACH IV SCH (21:33)
[2019-03-25] MEDS: LOSARTAN 25 MG TABLET PO SCH (21:35)
[2019-03-25] MEDS: cefTRIAXone 1,000 MG in SYRINGE 1 EACH IV SCH (21:36)
[2019-03-25] MEDS: SIMVASTATIN 20 MG TABLET PO SCH (21:36)
[2019-03-25] MEDS: RIVAROXABAN 20 MG TABLET PO SCH (21:36)
[2019-03-25] MEDS: ALLOPURINOL 100 MG TABLET PO SCH (21:51)
[2019-03-26] MEDS: methylPREDNISolone SOD SUC 40 MG/1 ML VIAL IV SCH ×2 (00:58→08:48)
[2019-03-26] MEDS: ALBUTEROL 2.5 MG/3 ML NEB RESP TX SCH ×2 (01:45→07:45)
[2019-03-26 08:08] VITALS: BP 135/60
[2019-03-26] MEDS: TAMSULOSIN 0.4 MG CAPSULE PO SCH (08:31)
[2019-03-26] MEDS: POTASSIUM CHLORIDE 10 MEQ TABLET PO SCH (08:31)
[2019-03-26] MEDS: PANTOPRAZOLE 40 MG TABLET PO SCH (08:31)
[2019-03-26] MEDS: METOPROLOL TARTRATE 50 MG TABLET PO SCH (08:31)
[2019-03-26] MEDS: GABAPENTIN 600 MG TABLET PO SCH (08:31)
[2019-03-26] MEDS: INSULIN LISPRO 100 UNIT/ML SUBCUT SCH ×2 (08:33→11:49)
[2019-03-26] MEDS: DOCUSATE SODIUM 100 MG CAPSULE PO SCH (08:48)
[2019-03-26] MEDS: POLYETHYLENE GLYCOL POWDER 17 GM PACK PO SCH (08:48)
[2019-03-26] MEDS: FUROSEMIDE 40 MG/4 ML VIAL IV SCH (10:27)
[2019-03-26] MEDS: DIGOXIN 0.125 MG TABLET PO SCH (10:28)
== END 2019-03-26 11:48 | disposition home or self-care (01) | DRG 194 ==
LOC: N.2E 17:04
PROVIDERS: ADMIT Family Medicine; ATTEND Family Medicine

== ENCOUNTER 2019-08-25 21:39 | Observation (INO) ==
[2019-08-25] MEDS ORDERED: SODIUM CHLORIDE 0.9% 500 ML IV STA (23:13)
[2019-08-25] MEDS ORDERED: ALBUTEROL/IPRATROPIUM 3 ML NEB RESP TX STA (23:13)
[2019-08-25 23:21] LABS: Basophils % 0.1 % (0.0-0.8); Hematocrit 38.4 VOL% (42.0-52.0); Hemoglobin 12.7 GM/DL (14.0-18.0); Immature Granulocytes % 1.1 %; Lymphocytes % 10.8 % (21.2-54.2); Mean Corpuscular HGB Conc 33.1 GM/DL (32-36); Mean Corpuscular Volume 92.1 FL (87-102); Mean Platelet Volume 10.8 FL (9.6-12.0); Monocytes % 6.2 % (1.7-12.7); Neutrophils % 81.8 % (38.7-73.9); Platelet Count 122 T/CUMM (130-400); Red Blood Count 4.17 MC/CUMM (3.8-5.5); Red Cell Distribution Width 15.5 % (9.3-17.3); White Blood Count 8.8 T/CUMM (4-12)
[2019-08-25 23:27] LABS: INR 1.2; PT Patient Result 13.5 SECS (9.6-12.2)
[2019-08-25 23:45] LABS: Albumin 3.6 G/DL (3.4-5.0); Calcium 9.4 MG/DL (8.5-10.1); Osmolality,Calculated 286.8 MOS/KG (273-304); Total Protein 7.1 G/DL (6.4-8.3)
[2019-08-25] MEDS ORDERED: PIPERACILLIN/TAZOBACTAM 3,375 MG in SODIUM CHLORIDE 0.9% 100 ML IV STA (23:46)
[2019-08-26 01:23] LABS: Apearance,Urine CLEAR (Clear); Bilirubin,Urine Negative (Negative); Blood, Urine Moderate mg/dL (Negative); Glucose,Urine (UA) >=500 mg/dL (Negative); Hyaline Casts,Urine 1 /LPF (0-3); Ketones,Urine Negative (Negative); Nitrite,Urine Negative (Negative); Protein,Urine Negative; RBC,Urine 2 /HPF (0-4); Urine Color Yellow (Yellow); Urine Specific Gravity 1.021 (1.001-1.035); Urine Urobilinogen < 2.0 EU/DL (0.2-1.0); WBC,Urine <1 /HPF (0-6)
[2019-08-26] MEDS ORDERED: ONDANSETRON 4 MG/2 ML VIAL IV PRN (01:45)
[2019-08-26] MEDS ORDERED: ACETAMINOPHEN 325 MG TABLET PO PRN (01:45)
[2019-08-26] MEDS ORDERED: DEXTROSE 50% 25 GM/50 ML SYRINGE IV PRN (01:45)
[2019-08-26] MEDS ORDERED: MORPHINE 4 MG/1 ML VIAL IV PRN (01:45)
[2019-08-26] MEDS ORDERED: ENOXAPARIN 40 MG/0.4 ML SYRINGE SUBCUT SCH (01:45)
[2019-08-26] MEDS ORDERED: SODIUM CHLORIDE 0.9% 1,000 ML IV SCH (01:45)
[2019-08-26] MEDS ORDERED: GLUCAGON 1 MG VIAL IM PRN (01:45)
[2019-08-26] MEDS: INSULIN REGULAR 100 UNIT/ML SUBCUT SCH ×3 (02:20→12:03)
[2019-08-26] MEDS: ALBUTEROL/IPRATROPIUM 3 ML NEB RESP TX SCH ×3 (03:20→11:04)
[2019-08-26 04:56] LABS: Basophils % 0.2 % (0.0-0.8); Eosinophils % 0.2 % (0.00-10.9); Hematocrit 33.6 VOL% (42.0-52.0); Hemoglobin 11.2 GM/DL (14.0-18.0); Immature Granulocytes % 0.6 %; Immature Granulocytes Absolute 0.03 #; Lymphocytes # 0.9 10*3/uL (1.4-4.0); Lymphocytes % 16.4 % (21.2-54.2); Mean Corpuscular HGB Conc 33.3 GM/DL (32-36); Mean Corpuscular Volume 92.1 FL (87-102); Mean Platelet Volume 10.5 FL (9.6-12.0); Monocytes % 6.1 % (1.7-12.7); Neutrophils % 76.5 % (38.7-73.9); Platelet Count 88 T/CUMM (130-400); Red Blood Count 3.65 MC/CUMM (3.8-5.5); Red Cell Distribution Width 15.3 % (9.3-17.3); White Blood Count 5.4 T/CUMM (4-12)
[2019-08-26 05:40] LABS: Lymphocytes 15 % (20-55); Segmented Neutrophils 79 % (50-85)
[2019-08-26 05:41] LABS: Ovalocytes 2+; Platelet Estimate Decreased; Total Cells Counted 100
[2019-08-26 05:47] LABS: Albumin 3.1 G/DL (3.4-5.0); Bilirubin,Total 1.8 MG/DL (0.2-1.0); Calcium 9.1 MG/DL (8.5-10.1); Osmolality,Calculated 284.2 MOS/KG (273-304); Total Protein 5.9 G/DL (6.4-8.3)
[2019-08-26] MEDS ORDERED: PIPERACILLIN/TAZOBACTAM 3,375 MG in SODIUM CHLORIDE 0.9% 100 ML IV SCH (08:00)
[2019-08-26] MEDS ORDERED: predniSONE 20 MG TABLET PO SCH (08:00)
[2019-08-26] MEDS ORDERED: POTASSIUM CHLORIDE 20 MEQ TABLET PO SCH (09:00)
[2019-08-26] MEDS ORDERED: METOPROLOL TARTRATE 50 MG TABLET PO SCH (09:00)
[2019-08-26] MEDS ORDERED: TAMSULOSIN 0.4 MG CAPSULE PO SCH (09:00)
[2019-08-26] MEDS ORDERED: BUMETANIDE 1 MG TABLET PO SCH (09:00)
[2019-08-26] MEDS ORDERED: GABAPENTIN 600 MG TABLET PO SCH (09:00)
[2019-08-26] MEDS ORDERED: ALPHA LIPOIC ACID 200 MG PO SCH (09:00)
[2019-08-26] MEDS ORDERED: DOCUSATE SODIUM 100 MG CAPSULE PO SCH (09:00)
[2019-08-26] MEDS ORDERED: PANTOPRAZOLE 40 MG TABLET PO SCH (09:00)
[2019-08-26] MEDS ORDERED: sitaGLIPtin 100 MG TABLET PO SCH (09:00)
[2019-08-26] MEDS ORDERED: INSULIN GLARGINE 100 UNIT/ML SUBCUT SCH (09:00)
[2019-08-26] MEDS ORDERED: NON-FORMULARY MEDICATION (Omeprazole 20 MG) PO SCH (09:00)
[2019-08-26] MEDS ORDERED: DIGOXIN 0.125 MG TABLET PO SCH (13:00)
[2019-08-26 13:16] VITALS: BP 106/56
[2019-08-26] MEDS ORDERED: metFORMIN 500 MG TABLET PO SCH (17:00)
[2019-08-26] MEDS ORDERED: COLCHICINE 0.6 MG CAPSULE PO SCH (21:00)
[2019-08-26] MEDS ORDERED: SIMVASTATIN 20 MG TABLET PO SCH (21:00)
[2019-08-26] MEDS ORDERED: IVERMECTIN TOP SCH (21:00)
[2019-08-26] MEDS ORDERED: RIVAROXABAN 20 MG PO SCH (21:00)
[2019-08-26] MEDS ORDERED: allopurinoL 100 MG TABLET PO SCH (21:00)
== END 2019-08-26 12:55 | disposition home or self-care (01) ==
LOC: N.EDINP 21:39 → N.ED 21:39 → N.4E 08-26 01:12
PROVIDERS: ADMIT Family Medicine; ATTEND Family Medicine

== ENCOUNTER 2019-08-31 11:26 | Observation (INO) ==
[2019-08-31 12:07] LABS: INR 1.3; PT Patient Result 14.4 SECS (9.6-12.2); Partial Thromboplastin Time 34.8 SECS (20.8-36.0)
[2019-08-31 12:40] LABS: Basophils % 0.3 % (0.0-0.8); Eosinophils % 0.4 % (0.00-10.9); Hematocrit 38.1 VOL% (42.0-52.0); Hemoglobin 12.7 GM/DL (14.0-18.0); Immature Granulocytes Absolute 0.07 #; Lymphocytes # 1.1 10*3/uL (1.4-4.0); Lymphocytes % 14.8 % (21.2-54.2); Mean Corpuscular HGB Conc 33.3 GM/DL (32-36); Mean Corpuscular Volume 92.9 FL (87-102); Mean Platelet Volume 10.3 FL (9.6-12.0); Monocytes % 8.2 % (1.7-12.7); NRBC # 0.02 10*3/uL; Neutrophils % 75.3 % (38.7-73.9); Platelet Count 147 T/CUMM (130-400); Red Cell Distribution Width 15.5 % (9.3-17.3); White Blood Count 7.1 T/CUMM (4-12)
[2019-08-31 12:41] LABS: Albumin 3.6 G/DL (3.4-5.0); Bilirubin,Total 1.1 MG/DL (0.2-1.0); Osmolality,Calculated 277.1 MOS/KG (273-304); Total Protein 6.3 G/DL (6.4-8.3)
[2019-08-31] MEDS ORDERED: DEXTROSE 50% 25 GM/50 ML VIAL IV PRN (13:57)
[2019-08-31] MEDS ORDERED: ONDANSETRON 4 MG/2 ML VIAL IV PRN (13:57)
[2019-08-31] MEDS ORDERED: SODIUM CHLORIDE 0.9% 500 ML IV STA (13:57)
[2019-08-31] MEDS ORDERED: GLUCAGON 1 MG VIAL IM PRN (13:57)
[2019-08-31] MEDS ORDERED: ACETAMINOPHEN 325 MG TABLET PO PRN (13:57)
[2019-08-31] MEDS: SODIUM CHLORIDE 0.9% 1,000 ML IV SCH ×2 (15:41→23:20)
[2019-08-31 18:48] LABS: Troponin I 0.065 NG/ML (0.00-0.045)
[2019-08-31] MEDS: ALBUTEROL/IPRATROPIUM 3 ML NEB RESP TX SCH ×2 (19:26→22:55)
[2019-08-31 20:35] LABS: Troponin I 0.057 NG/ML (0.00-0.045)
[2019-08-31] MEDS: BUMETANIDE 1 MG TABLET PO SCH (20:46)
[2019-08-31] MEDS: metFORMIN 500 MG TABLET PO SCH (20:46)
[2019-08-31] MEDS: PANTOPRAZOLE 40 MG TABLET PO SCH (20:47)
[2019-08-31] MEDS: SIMVASTATIN 20 MG TABLET PO SCH (20:48)
[2019-08-31] MEDS: DOCUSATE SODIUM 100 MG CAPSULE PO SCH (20:48)
[2019-08-31] MEDS: RIVAROXABAN 20 MG TABLET PO SCH (20:48)
[2019-08-31] MEDS: GABAPENTIN 600 MG TABLET PO SCH (20:48)
[2019-08-31] MEDS: COLCHICINE 0.6 MG CAPSULE PO SCH (20:49)
[2019-08-31] MEDS: allopurinoL 100 MG TABLET PO SCH (20:50)
[2019-08-31] MEDS: TAMSULOSIN 0.4 MG CAPSULE PO SCH (20:50)
[2019-08-31] MEDS: IVERMECTIN TOP SCH (20:55)
[2019-08-31] MEDS: NON-FORMULARY MEDICATION (Alpha Lipoic Acid 200 MG) PO SCH (20:56)
[2019-09-01 00:07] LABS: Troponin I 0.062 NG/ML (0.00-0.045)
[2019-09-01] MEDS: ALBUTEROL/IPRATROPIUM 3 ML NEB RESP TX SCH ×6 (02:05→23:49)
[2019-09-01 02:40] LABS: Troponin I 0.072 NG/ML (0.00-0.045)
[2019-09-01] MEDS ORDERED: PANTOPRAZOLE 40 MG TABLET PO SCH (09:00)
[2019-09-01] MEDS: sitaGLIPtin 100 MG TABLET PO SCH (09:27)
[2019-09-01] MEDS: GABAPENTIN 600 MG TABLET PO SCH ×3 (09:27→22:05)
[2019-09-01] MEDS: BUMETANIDE 1 MG TABLET PO SCH (09:27)
[2019-09-01] MEDS: predniSONE 10 MG TABLET PO SCH (09:27)
[2019-09-01] MEDS: POTASSIUM CHLORIDE 20 MEQ TABLET PO SCH (09:27)
[2019-09-01] MEDS: DOCUSATE SODIUM 100 MG CAPSULE PO SCH ×2 (09:27→22:05)
[2019-09-01] MEDS: PANTOPRAZOLE 40 MG TABLET PO SCH ×2 (09:27→22:05)
[2019-09-01] MEDS: METOPROLOL TARTRATE 50 MG TABLET PO SCH (09:27)
[2019-09-01] MEDS: FLUDROCORTISONE 0.1 MG TABLET PO SCH ×2 (09:27→22:06)
[2019-09-01] MEDS: SODIUM CHLORIDE 0.9% 1,000 ML IV SCH ×3 (09:28→22:02)
[2019-09-01] MEDS: INSULIN GLARGINE 100 UNIT/ML SUBCUT SCH (09:28)
[2019-09-01] MEDS: NON-FORMULARY MEDICATION (Alpha Lipoic Acid 200 MG) PO SCH ×2 (09:33→22:04)
[2019-09-01] MEDS: DIGOXIN 0.125 MG TABLET PO SCH (12:06)
[2019-09-01] MEDS ORDERED: SODIUM CHLORIDE 0.9% 250 ML IV ONE (17:03)
[2019-09-01] MEDS: RIVAROXABAN 20 MG TABLET PO SCH (22:05)
[2019-09-01] MEDS: allopurinoL 100 MG TABLET PO SCH (22:05)
[2019-09-01] MEDS: SIMVASTATIN 20 MG TABLET PO SCH (22:05)
[2019-09-01] MEDS: metFORMIN 500 MG TABLET PO SCH (22:05)
[2019-09-01] MEDS: TAMSULOSIN 0.4 MG CAPSULE PO SCH (22:05)
[2019-09-01] MEDS: IVERMECTIN TOP SCH (22:06)
[2019-09-01] MEDS: COLCHICINE 0.6 MG CAPSULE PO SCH (22:06)
[2019-09-02] MEDS: ALBUTEROL/IPRATROPIUM 3 ML NEB RESP TX SCH ×3 (03:37→11:14)
[2019-09-02 05:58] LABS: Calcium 8.2 MG/DL (8.5-10.1); Osmolality,Calculated 284.4 MOS/KG (273-304)
[2019-09-02] MEDS ORDERED: POTASSIUM CHLORIDE 8 MEQ CAPSULE PO ONE (07:05)
[2019-09-02] MEDS: DOCUSATE SODIUM 100 MG CAPSULE PO SCH (08:37)
[2019-09-02] MEDS: POTASSIUM CHLORIDE 20 MEQ TABLET PO SCH (08:37)
[2019-09-02] MEDS: METOPROLOL TARTRATE 50 MG TABLET PO SCH (08:37)
[2019-09-02] MEDS: PANTOPRAZOLE 40 MG TABLET PO SCH (08:38)
[2019-09-02] MEDS: NON-FORMULARY MEDICATION (Alpha Lipoic Acid 200 MG) PO SCH (08:38)
[2019-09-02] MEDS: GABAPENTIN 600 MG TABLET PO SCH ×2 (08:38→15:26)
[2019-09-02] MEDS: FLUDROCORTISONE 0.1 MG TABLET PO SCH (08:38)
[2019-09-02] MEDS: predniSONE 10 MG TABLET PO SCH (08:38)
[2019-09-02] MEDS: sitaGLIPtin 100 MG TABLET PO SCH (08:38)
[2019-09-02] MEDS: INSULIN GLARGINE 100 UNIT/ML SUBCUT SCH (08:38)
[2019-09-02] MEDS: SODIUM CHLORIDE 0.9% 1,000 ML IV SCH (08:52)
[2019-09-02] MEDS: POTASSIUM CHLORIDE RIDER 10 MEQ in PREMIX 1 EACH IV PRN ×6 (08:53→14:58)
[2019-09-02] MEDS ORDERED: BUMETANIDE 1 MG TABLET PO SCH (09:00)
[2019-09-02 12:31] VITALS: BP 119/50
[2019-09-02] MEDS: DIGOXIN 0.125 MG TABLET PO SCH (14:11)
== END 2019-09-02 16:58 | disposition home or self-care (01) ==
LOC: N.EDINP 11:26 → N.ED 11:26 → N.EDINP 15:03 → N.2W 15:13
PROVIDERS: ADMIT Family Medicine; ATTEND Family Medicine

== ENCOUNTER 2020-01-12 08:50 | Inpatient (IN) ==
[2020-01-12] MEDS ORDERED: SODIUM CHLORIDE 0.9% 500 ML IV STA (08:58)
[2020-01-12] MEDS ORDERED: ALBUTEROL 2.5 MG/3 ML NEB RESP TX STA (08:59)
[2020-01-12] MEDS ORDERED: PIPERACILLIN/TAZOBACTAM 3,375 MG in SODIUM CHLORIDE 0.9% 100 ML IV STA (09:25)
[2020-01-12 09:57] LABS: Eosinophils % 0.4 % (0.00-10.9); Hematocrit 29.2 VOL% (42.0-52.0); Hemoglobin 8.6 GM/DL (14.0-18.0); Immature Granulocytes % 1.2 %; Lymphocytes # 0.6 10*3/uL (1.4-4.0); Lymphocytes % 7.6 % (21.2-54.2); Mean Corpuscular HGB Conc 29.5 GM/DL (32-36); Mean Corpuscular Volume 77.7 FL (87-102); Mean Platelet Volume 10.2 FL (9.6-12.0); Monocytes % 5.9 % (1.7-12.7); NRBC # 0.04 10*3/uL; Neutrophils % 84.9 % (38.7-73.9); Platelet Count 139 T/CUMM (130-400); Red Blood Count 3.76 MC/CUMM (3.8-5.5); Red Cell Distribution Width 19.3 % (9.3-17.3); White Blood Count 8.3 T/CUMM (4-12)
[2020-01-12] MEDS ORDERED: PIPERACILLIN/TAZOBACTAM 3,375 MG VIAL IV ONE (10:03)
[2020-01-12 10:09] LABS: INR 1.5; PT Patient Result 15.8 SECS (9.8-11.9)
[2020-01-12] MEDS ORDERED: SODIUM CHLORIDE 0.9% 1,000 ML IV STA (10:15)
[2020-01-12] MEDS ORDERED: ASPIRIN CHEW 81 MG TABLET PO STA (10:19)
[2020-01-12 10:20] LABS: Albumin 3.3 G/DL (3.4-5.0); Bilirubin,Total 0.9 MG/DL (0.2-1.0); Osmolality,Calculated 283.5 MOS/KG (273-304)
[2020-01-12] MEDS ORDERED: ASPIRIN CHEW 81 MG TABLET PO ONE (10:30)
[2020-01-12] MEDS ORDERED: DEXAMETHASONE 10 MG/1 ML VIAL IV STA (12:06)
[2020-01-12] MEDS ORDERED: ACETAMINOPHEN 325 MG TABLET PO PRN ×2 (12:06→22:17)
[2020-01-12] MEDS ORDERED: ONDANSETRON 4 MG/2 ML VIAL IV PRN (12:06)
[2020-01-12] MEDS: SODIUM CHLORIDE 0.9% 1,000 ML IV SCH ×2 (12:10→21:52)
[2020-01-12 15:42] LABS: Apearance,Urine CLEAR (Clear); Bilirubin,Urine Negative (Negative); Blood, Urine Negative (Negative); Glucose,Urine (UA) Negative (Negative); Ketones,Urine Negative (Negative); Mucus,Urine Occasional /LPF (Occasional); Nitrite,Urine Negative (Negative); Protein,Urine Negative; RBC,Urine 10 /HPF (0-4); Squamous Epithelial Cell,Urine Occasional /HPF (0-10); Urine Color Yellow (Yellow); Urine Specific Gravity 1.024 (1.001-1.035); Urine Urobilinogen < 2.0 EU/DL (0.2-1.0); WBC,Urine 2 /HPF (0-6)
[2020-01-12] MEDS: methylPREDNISolone SOD SUC 40 MG/1 ML VIAL IV SCH (18:05)
[2020-01-12] MEDS: PIPERACILLIN/TAZOBACTAM 3,375 MG in SODIUM CHLORIDE 0.9% 100 ML IV SCH (18:10)
[2020-01-12] MEDS: ALBUTEROL/IPRATROPIUM 3 ML NEB RESP TX SCH (19:00)
[2020-01-12] MEDS ORDERED: FUROSEMIDE 40 MG/4 ML VIAL IV ONE (20:33)
[2020-01-12] MEDS: DOCUSATE SODIUM 100 MG CAPSULE PO SCH (21:15)
[2020-01-12] MEDS: FERROUS SULFATE 325 MG TABLET PO SCH (21:45)
[2020-01-12] MEDS ORDERED: DEXTROSE 10% 250 ML BAG IV PRN (22:24)
[2020-01-12] MEDS ORDERED: GLUCAGON 1 MG VIAL IM PRN (22:24)
[2020-01-12] MEDS: FLUDROCORTISONE 0.1 MG TABLET PO SCH (22:54)
[2020-01-12] MEDS: GABAPENTIN 600 MG TABLET PO SCH (22:54)
[2020-01-12] MEDS: SIMVASTATIN 20 MG TABLET PO SCH (22:54)
[2020-01-12] MEDS: INSULIN GLARGINE 100 UNIT/ML SUBCUT SCH (22:54)
[2020-01-12] MEDS: allopurinoL 100 MG TABLET PO SCH (22:54)
[2020-01-12] MEDS: MAGNESIUM CHLORIDE 64 MG TABLET PO SCH (22:54)
[2020-01-12] MEDS: TAMSULOSIN 0.4 MG CAPSULE PO SCH (22:54)
[2020-01-13] MEDS: ALBUTEROL/IPRATROPIUM 3 ML NEB RESP TX SCH ×4 (01:00→19:00)
[2020-01-13] MEDS: PIPERACILLIN/TAZOBACTAM 3,375 MG in SODIUM CHLORIDE 0.9% 100 ML IV SCH ×3 (01:19→17:13)
[2020-01-13] MEDS: methylPREDNISolone SOD SUC 40 MG/1 ML VIAL IV SCH ×3 (02:45→17:13)
[2020-01-13] MEDS: SODIUM CHLORIDE 0.9% 1,000 ML IV SCH ×2 (03:40→13:36)
[2020-01-13 04:04] LABS: Basophils % 0.1 % (0.0-0.8); Hematocrit 27.7 VOL% (42.0-52.0); Hemoglobin 7.9 GM/DL (14.0-18.0); Immature Granulocytes % 1.2 %; Immature Granulocytes Absolute 0.08 #; Lymphocytes # 0.4 10*3/uL (1.4-4.0); Lymphocytes % 6.2 % (21.2-54.2); Mean Corpuscular HGB Conc 28.5 GM/DL (32-36); Mean Corpuscular Volume 80.1 FL (87-102); Mean Platelet Volume 10.4 FL (9.6-12.0); Monocytes % 1.7 % (1.7-12.7); Neutrophils % 90.8 % (38.7-73.9); Platelet Count 136 T/CUMM (130-400); Red Blood Count 3.46 MC/CUMM (3.8-5.5); Red Cell Distribution Width 19.6 % (9.3-17.3); White Blood Count 6.9 T/CUMM (4-12)
[2020-01-13 04:31] LABS: Calcium 8.7 MG/DL (8.5-10.1); Osmolality,Calculated 284.8 MOS/KG (273-304)
[2020-01-13 05:27] LABS: Band Neutrophils 1 % (0-10); Lymphocytes 6 % (20-55); Segmented Neutrophils 91 % (50-85); Total Cells Counted 100
[2020-01-13 05:28] LABS: Anisocytosis 1+; Hypochromasia 1+; Microcytosis 1+; Ovalocytes Few; Polychromasia Slight
[2020-01-13 05:29] LABS: Platelet Estimate Adequate
[2020-01-13] MEDS: MAGNESIUM CHLORIDE 64 MG TABLET PO SCH ×3 (09:20→21:35)
[2020-01-13] MEDS: INSULIN REGULAR 100 UNIT/ML SUBCUT SCH ×4 (09:20→21:37)
[2020-01-13] MEDS: BUMETANIDE 1 MG TABLET PO SCH ×2 (09:20→16:22)
[2020-01-13] MEDS: GABAPENTIN 600 MG TABLET PO SCH ×3 (09:21→21:36)
[2020-01-13] MEDS: sitaGLIPtin 100 MG TABLET PO SCH (09:21)
[2020-01-13] MEDS: DOCUSATE SODIUM 100 MG CAPSULE PO SCH ×2 (09:21→21:36)
[2020-01-13] MEDS: POTASSIUM CHLORIDE 20 MEQ TABLET PO SCH (09:21)
[2020-01-13] MEDS: FLUDROCORTISONE 0.1 MG TABLET PO SCH ×2 (09:21→21:35)
[2020-01-13] MEDS: SPIRONOLACTONE 25 MG TABLET PO SCH (09:21)
[2020-01-13] MEDS: FERROUS SULFATE 325 MG TABLET PO SCH ×2 (09:21→21:36)
[2020-01-13] MEDS: PANTOPRAZOLE 40 MG TABLET PO SCH (09:21)
[2020-01-13] MEDS: RIVAROXABAN 20 MG TABLET PO SCH (09:21)
[2020-01-13] MEDS: DIGOXIN 0.125 MG TABLET PO SCH (13:35)
[2020-01-13] MEDS: INSULIN GLARGINE 100 UNIT/ML SUBCUT SCH (21:36)
[2020-01-13] MEDS: allopurinoL 100 MG TABLET PO SCH (21:36)
[2020-01-13] MEDS: TAMSULOSIN 0.4 MG CAPSULE PO SCH (21:36)
[2020-01-13] MEDS: SIMVASTATIN 20 MG TABLET PO SCH (21:36)
[2020-01-14] MEDS: SODIUM CHLORIDE 0.9% 1,000 ML IV SCH (00:40)
[2020-01-14] MEDS: ALBUTEROL/IPRATROPIUM 3 ML NEB RESP TX SCH ×4 (01:00→19:45)
[2020-01-14] MEDS: methylPREDNISolone SOD SUC 40 MG/1 ML VIAL IV SCH ×2 (01:19→08:37)
[2020-01-14] MEDS: PIPERACILLIN/TAZOBACTAM 3,375 MG in SODIUM CHLORIDE 0.9% 100 ML IV SCH ×3 (01:21→16:39)
[2020-01-14] MEDS: INSULIN REGULAR 100 UNIT/ML SUBCUT SCH ×4 (08:37→20:26)
[2020-01-14] MEDS: GABAPENTIN 600 MG TABLET PO SCH ×3 (08:38→20:25)
[2020-01-14] MEDS: PANTOPRAZOLE 40 MG TABLET PO SCH (08:38)
[2020-01-14] MEDS: MAGNESIUM CHLORIDE 64 MG TABLET PO SCH ×3 (08:38→20:25)
[2020-01-14] MEDS: POTASSIUM CHLORIDE 20 MEQ TABLET PO SCH (08:38)
[2020-01-14] MEDS: DOCUSATE SODIUM 100 MG CAPSULE PO SCH ×2 (08:38→20:25)
[2020-01-14] MEDS: BUMETANIDE 1 MG TABLET PO SCH ×2 (08:38→18:43)
[2020-01-14] MEDS: FLUDROCORTISONE 0.1 MG TABLET PO SCH ×2 (08:38→20:26)
[2020-01-14] MEDS: SPIRONOLACTONE 25 MG TABLET PO SCH (08:38)
[2020-01-14] MEDS: RIVAROXABAN 20 MG TABLET PO SCH (08:39)
[2020-01-14] MEDS: FERROUS SULFATE 325 MG TABLET PO SCH ×2 (08:39→20:26)
[2020-01-14] MEDS: sitaGLIPtin 100 MG TABLET PO SCH (08:39)
[2020-01-14] MEDS: DIGOXIN 0.125 MG TABLET PO SCH (12:35)
[2020-01-14] MEDS: allopurinoL 100 MG TABLET PO SCH (20:25)
[2020-01-14] MEDS: SIMVASTATIN 20 MG TABLET PO SCH (20:26)
[2020-01-14] MEDS: INSULIN GLARGINE 100 UNIT/ML SUBCUT SCH (20:26)
[2020-01-14] MEDS: TAMSULOSIN 0.4 MG CAPSULE PO SCH (20:26)
[2020-01-14] MEDS ORDERED: NON-FORMULARY MEDICATION (Alpha Lipoic Acid 200 MG) PO SCH (21:00)
[2020-01-15] MEDS: PIPERACILLIN/TAZOBACTAM 3,375 MG in SODIUM CHLORIDE 0.9% 100 ML IV SCH ×2 (01:00→08:03)
[2020-01-15] MEDS: ALBUTEROL/IPRATROPIUM 3 ML NEB RESP TX SCH ×2 (01:05→07:30)
[2020-01-15 05:30] LABS: Basophils % 0.2 % (0.0-0.8); Eosinophils % 0.3 % (0.00-10.9); Hematocrit 28.6 VOL% (42.0-52.0); Hemoglobin 8.2 GM/DL (14.0-18.0); Immature Granulocytes Absolute 0.11 #; Lymphocytes # 0.9 10*3/uL (1.4-4.0); Lymphocytes % 8.2 % (21.2-54.2); Mean Corpuscular HGB Conc 28.7 GM/DL (32-36); Mean Corpuscular Volume 79.9 FL (87-102); Mean Platelet Volume 10.3 FL (9.6-12.0); Monocytes % 4.7 % (1.7-12.7); NRBC # 0.03 10*3/uL; Neutrophils % 85.6 % (38.7-73.9); Platelet Count 176 T/CUMM (130-400); Red Blood Count 3.58 MC/CUMM (3.8-5.5); Red Cell Distribution Width 19.5 % (9.3-17.3); White Blood Count 11.5 T/CUMM (4-12)
[2020-01-15 05:36] LABS: Albumin 3.2 G/DL (3.4-5.0); Calcium 8.5 MG/DL (8.5-10.1); Osmolality,Calculated 280.7 MOS/KG (273-304); Total Protein 6.6 G/DL (6.4-8.3)
[2020-01-15 07:29] VITALS: BP 119/68
[2020-01-15] MEDS: INSULIN REGULAR 100 UNIT/ML SUBCUT SCH ×2 (07:30→11:32)
[2020-01-15] MEDS: MAGNESIUM CHLORIDE 64 MG TABLET PO SCH (08:02)
[2020-01-15] MEDS: FERROUS SULFATE 325 MG TABLET PO SCH (08:03)
[2020-01-15] MEDS: sitaGLIPtin 100 MG TABLET PO SCH (08:03)
[2020-01-15] MEDS: RIVAROXABAN 20 MG TABLET PO SCH (08:03)
[2020-01-15] MEDS: DOCUSATE SODIUM 100 MG CAPSULE PO SCH (08:03)
[2020-01-15] MEDS: BUMETANIDE 1 MG TABLET PO SCH (08:03)
[2020-01-15] MEDS: FLUDROCORTISONE 0.1 MG TABLET PO SCH (08:03)
[2020-01-15] MEDS: POTASSIUM CHLORIDE 20 MEQ TABLET PO SCH (08:03)
[2020-01-15] MEDS: SPIRONOLACTONE 25 MG TABLET PO SCH (08:03)
[2020-01-15] MEDS: GABAPENTIN 600 MG TABLET PO SCH (08:03)
[2020-01-15] MEDS: PANTOPRAZOLE 40 MG TABLET PO SCH (08:06)
[2020-01-15] MEDS ORDERED: CYANOCOBALAMIN 500 MCG TABLET PO SCH (09:00)
[2020-01-15] MEDS ORDERED: metOLazone 2.5 MG TABLET PO SCH (09:00)
[2020-01-15] MEDS ORDERED: predniSONE 20 MG TABLET PO SCH (09:00)
[2020-01-15] MEDS ORDERED: MULTIVITAMIN (CENTRUM) TABLET PO SCH (09:00)
[2020-01-15] MEDS ORDERED: LEVOFLOXACIN 500 MG TABLET PO SCH (11:00)
== END 2020-01-15 13:41 | disposition home health service (06) | DRG 193 ==
LOC: N.ED 08:50 → N.EDINP 10:19 → N.2E 10:51
PROVIDERS: ADMIT Family Medicine; ATTEND Family Medicine

== ENCOUNTER 2020-04-02 15:15 | Inpatient (IN) ==
[2020-04-02 16:21] LABS: Basophils % 0.1 % (0.0-0.8); Hematocrit 29.9 VOL% (42.0-52.0); Immature Granulocytes Absolute 0.07 #; Lymphocytes # 0.5 10*3/uL (1.4-4.0); Lymphocytes % 6.2 % (21.2-54.2); Mean Corpuscular HGB Conc 33.4 GM/DL (32-36); Mean Platelet Volume 9.9 FL (9.6-12.0); Monocytes % 2.9 % (1.7-12.7); NRBC # 0.05 10*3/uL; Neutrophils % 89.8 % (38.7-73.9); Platelet Count 135 T/CUMM (130-400); Red Blood Count 2.99 MC/CUMM (3.8-5.5); Red Cell Distribution Width 23.3 % (9.3-17.3); White Blood Count 7.2 T/CUMM (4-12)
[2020-04-02 16:29] LABS: INR 1.2; PT Patient Result 12.3 SECS (9.8-11.9)
[2020-04-02 16:32] LABS: Albumin 3.5 G/DL (3.4-5.0); Bilirubin,Total 1.2 MG/DL (0.2-1.0); Calcium 9.2 MG/DL (8.5-10.1); Osmolality,Calculated 278.8 MOS/KG (273-304); Total Protein 6.6 G/DL (6.4-8.3)
[2020-04-02 16:39] LABS: Anisocytosis 1+
[2020-04-02 16:40] LABS: Elliptocytes Few; Platelet Estimate Adequate; Polychromasia Few
[2020-04-02 17:04] LABS: Apearance,Urine CLEAR (Clear); Bilirubin,Urine Negative (Negative); Blood, Urine Negative (Negative); Glucose,Urine (UA) Negative (Negative); Ketones,Urine Negative (Negative); Mucus,Urine Occasional /LPF (Occasional); Nitrite,Urine Negative (Negative); Protein,Urine Negative; RBC,Urine 1 /HPF (0-4); Urine Color Straw (Yellow); Urine Specific Gravity 1.005 (1.001-1.035); Urine Urobilinogen < 2.0 EU/DL (0.2-1.0); WBC,Urine 4 /HPF (0-6)
[2020-04-02] MEDS ORDERED: cefTRIAXone 1,000 MG in SODIUM CHLORIDE 0.9% 100 ML IV STA (17:04)
[2020-04-02] MEDS ORDERED: ONDANSETRON 4 MG/2 ML VIAL IV PRN (17:17)
[2020-04-02] MEDS ORDERED: ACETAMINOPHEN 325 MG TABLET PO PRN ×2 (17:17→17:19)
[2020-04-02] MEDS ORDERED: GLUCAGON 1 MG VIAL IM PRN (17:17)
[2020-04-02] MEDS ORDERED: DEXTROSE 50% 25 GM/50 ML VIAL IV PRN (17:17)
[2020-04-02] MEDS: ALBUTEROL/IPRATROPIUM 3 ML NEB RESP TX SCH (19:00)
[2020-04-03] MEDS: ALBUTEROL/IPRATROPIUM 3 ML NEB RESP TX SCH ×4 (00:24→19:34)
[2020-04-03] MEDS: FERROUS SULFATE 325 MG TABLET PO SCH ×3 (04:52→21:23)
[2020-04-03] MEDS: TAMSULOSIN 0.4 MG CAPSULE PO SCH ×2 (04:52→21:23)
[2020-04-03] MEDS: DOCUSATE SODIUM 100 MG CAPSULE PO SCH ×3 (04:52→21:22)
[2020-04-03] MEDS: GABAPENTIN 600 MG TABLET PO SCH ×4 (04:53→21:23)
[2020-04-03] MEDS: SIMVASTATIN 20 MG TABLET PO SCH ×2 (04:53→21:24)
[2020-04-03] MEDS: allopurinoL 100 MG TABLET PO SCH ×2 (04:53→21:23)
[2020-04-03] MEDS: INSULIN GLARGINE 100 UNIT/ML SUBCUT SCH ×2 (04:53→21:28)
[2020-04-03] MEDS: FLUDROCORTISONE 0.1 MG TABLET PO SCH ×3 (04:53→21:22)
[2020-04-03 05:29] LABS: Eosinophils % 0.2 % (0.00-10.9); Hematocrit 26.9 VOL% (42.0-52.0); Hemoglobin 8.4 GM/DL (14.0-18.0); Immature Granulocytes % 0.6 %; Immature Granulocytes Absolute 0.03 #; Lymphocytes # 0.9 10*3/uL (1.4-4.0); Lymphocytes % 18.4 % (21.2-54.2); Mean Corpuscular HGB Conc 31.2 GM/DL (32-36); Mean Corpuscular Volume 97.1 FL (87-102); Mean Platelet Volume 9.8 FL (9.6-12.0); Monocytes % 4.3 % (1.7-12.7); NRBC # 0.03 10*3/uL; Neutrophils % 76.5 % (38.7-73.9); Platelet Count 111 T/CUMM (130-400); Red Blood Count 2.77 MC/CUMM (3.8-5.5); Red Cell Distribution Width 22.3 % (9.3-17.3); White Blood Count 5.1 T/CUMM (4-12)
[2020-04-03 05:46] LABS: Albumin 2.8 G/DL (3.4-5.0); Bilirubin,Total 0.9 MG/DL (0.2-1.0); Calcium 8.8 MG/DL (8.5-10.1); Osmolality,Calculated 280.4 MOS/KG (273-304); Total Protein 5.6 G/DL (6.4-8.3)
[2020-04-03 05:56] LABS: Elliptocytes Few; Hypochromasia 1+; Platelet Estimate Decreased
[2020-04-03 05:57] LABS: Microcytosis Slight
[2020-04-03] MEDS: BUMETANIDE 1 MG TABLET PO SCH ×2 (09:20→15:10)
[2020-04-03] MEDS: CYANOCOBALAMIN 500 MCG TABLET PO SCH (09:21)
[2020-04-03] MEDS: RIVAROXABAN 20 MG TABLET PO SCH (09:21)
[2020-04-03] MEDS: POTASSIUM CHLORIDE 20 MEQ TABLET PO SCH (09:21)
[2020-04-03] MEDS: PANTOPRAZOLE 40 MG TABLET PO SCH (09:22)
[2020-04-03] MEDS: MULTIVITAMIN (CENTRUM) TABLET PO SCH (09:22)
[2020-04-03] MEDS: LACTATED RINGERS 1,000 ML IV SCH ×2 (09:23)
[2020-04-03] MEDS: DIGOXIN 0.125 MG TABLET PO SCH (09:25)
[2020-04-03] MEDS ORDERED: ACETAMINOPHEN 500 MG TABLET PO ONE (21:17)
[2020-04-04] MEDS: ALBUTEROL/IPRATROPIUM 3 ML NEB RESP TX SCH ×4 (00:18→19:57)
[2020-04-04] MEDS: LACTATED RINGERS 1,000 ML IV SCH ×3 (02:16→22:03)
[2020-04-04] MEDS ORDERED: ACETAMINOPHEN 500 MG TABLET PO ONE (07:30)
[2020-04-04] MEDS ORDERED: FAMOTIDINE 20 MG/2 ML VIAL IV ONE (07:30)
[2020-04-04] MEDS ORDERED: IRON SUCROSE 300 MG in SODIUM CHLORIDE 0.9% 100 ML IV ONE (08:00)
[2020-04-04] MEDS ORDERED: predniSONE 10 MG TABLET PO SCH (09:00)
[2020-04-04] MEDS: BUMETANIDE 1 MG TABLET PO SCH ×2 (10:15→15:36)
[2020-04-04] MEDS: DOCUSATE SODIUM 100 MG CAPSULE PO SCH ×2 (10:15→20:55)
[2020-04-04] MEDS: MULTIVITAMIN (CENTRUM) TABLET PO SCH (10:16)
[2020-04-04] MEDS: POTASSIUM CHLORIDE 20 MEQ TABLET PO SCH (10:16)
[2020-04-04] MEDS: FLUDROCORTISONE 0.1 MG TABLET PO SCH ×2 (10:23→20:55)
[2020-04-04] MEDS: FERROUS SULFATE 325 MG TABLET PO SCH ×2 (10:23→20:55)
[2020-04-04] MEDS: GABAPENTIN 600 MG TABLET PO SCH ×3 (10:24→20:55)
[2020-04-04] MEDS: RIVAROXABAN 20 MG TABLET PO SCH (10:25)
[2020-04-04] MEDS: DIGOXIN 0.125 MG TABLET PO SCH (10:25)
[2020-04-04] MEDS: PANTOPRAZOLE 40 MG TABLET PO SCH (10:25)
[2020-04-04] MEDS: CYANOCOBALAMIN 500 MCG TABLET PO SCH (10:26)
[2020-04-04 14:02] LABS: Thyroid Stimulating Hormone 47.1 uIU/ml (0.358-3.74)
[2020-04-04 17:35] LABS: Free T4 (Free Thyroxine) 0.39 NG/DL (0.76-1.46)
[2020-04-04] MEDS: INSULIN GLARGINE 100 UNIT/ML SUBCUT SCH (20:54)
[2020-04-04] MEDS: SIMVASTATIN 20 MG TABLET PO SCH (20:55)
[2020-04-04] MEDS: allopurinoL 100 MG TABLET PO SCH (20:55)
[2020-04-04] MEDS: TAMSULOSIN 0.4 MG CAPSULE PO SCH (20:55)
[2020-04-05] MEDS: ALBUTEROL/IPRATROPIUM 3 ML NEB RESP TX SCH ×4 (01:00→19:38)
[2020-04-05] MEDS: LACTATED RINGERS 1,000 ML IV SCH ×2 (07:45→13:03)
[2020-04-05] MEDS: DIGOXIN 0.125 MG TABLET PO SCH (09:00)
[2020-04-05] MEDS: GABAPENTIN 600 MG TABLET PO SCH ×3 (09:00→20:51)
[2020-04-05] MEDS: RIVAROXABAN 20 MG TABLET PO SCH (09:00)
[2020-04-05] MEDS: MULTIVITAMIN (CENTRUM) TABLET PO SCH (09:00)
[2020-04-05] MEDS: FERROUS SULFATE 325 MG TABLET PO SCH ×2 (09:00→20:51)
[2020-04-05] MEDS: FLUDROCORTISONE 0.1 MG TABLET PO SCH ×2 (09:00→20:51)
[2020-04-05] MEDS: PANTOPRAZOLE 40 MG TABLET PO SCH (09:00)
[2020-04-05] MEDS: DOCUSATE SODIUM 100 MG CAPSULE PO SCH ×2 (09:00→20:51)
[2020-04-05] MEDS: CYANOCOBALAMIN 500 MCG TABLET PO SCH (09:00)
[2020-04-05] MEDS: methylPREDNISolone SOD SUC 40 MG/1 ML VIAL IV SCH ×2 (09:00→20:51)
[2020-04-05] MEDS: BUMETANIDE 1 MG TABLET PO SCH ×2 (09:00→15:23)
[2020-04-05] MEDS: POTASSIUM CHLORIDE 20 MEQ TABLET PO SCH (09:00)
[2020-04-05 09:19] LABS: Albumin (SPE) Rel % 66.4 %; Alpha 1 (SPE) 0.2 G/DL (0.1-0.4); Alpha 1 (SPE) Rel % 2.6 %; Alpha 2 (SPE) 0.8 G/DL (0.4-1.0); Alpha 2 (SPE) Rel % 12.5 %; Beta (SPE) 0.7 G/DL (0.5-1.1); Beta (SPE) Rel % 11.7 %; Gamma (SPE) 0.4 G/DL (0.7-1.7); Gamma (SPE) Rel % 6.8 %
[2020-04-05 09:58] LABS: Immuno Free Light Chain Kappa 2.12 MG/DL (0.33-1.94); Immuno Free Light Chain Lambda 1.54 MG/DL (0.57-2.63); Immuno Free Light Chain Ratio 1.38 MG/DL (0.26-1.65)
[2020-04-05] MEDS: allopurinoL 100 MG TABLET PO SCH (20:50)
[2020-04-05] MEDS: INSULIN GLARGINE 100 UNIT/ML SUBCUT SCH (20:51)
[2020-04-05] MEDS: SIMVASTATIN 20 MG TABLET PO SCH (20:51)
[2020-04-05] MEDS: TAMSULOSIN 0.4 MG CAPSULE PO SCH (20:51)
[2020-04-06] MEDS: ALBUTEROL/IPRATROPIUM 3 ML NEB RESP TX SCH ×2 (00:54→07:41)
[2020-04-06] MEDS: LACTATED RINGERS 1,000 ML IV SCH (06:30)
[2020-04-06] MEDS ORDERED: LEVOTHYROXINE 75 MCG TABLET PO SCH (06:30)
[2020-04-06] MEDS: methylPREDNISolone SOD SUC 40 MG/1 ML VIAL IV SCH (08:47)
[2020-04-06] MEDS: BUMETANIDE 1 MG TABLET PO SCH (08:48)
[2020-04-06] MEDS: DIGOXIN 0.125 MG TABLET PO SCH (08:48)
[2020-04-06] MEDS: CYANOCOBALAMIN 500 MCG TABLET PO SCH (08:49)
[2020-04-06] MEDS: MULTIVITAMIN (CENTRUM) TABLET PO SCH (08:49)
[2020-04-06] MEDS: POTASSIUM CHLORIDE 20 MEQ TABLET PO SCH (08:49)
[2020-04-06] MEDS: PANTOPRAZOLE 40 MG TABLET PO SCH (08:49)
[2020-04-06] MEDS: DOCUSATE SODIUM 100 MG CAPSULE PO SCH (08:49)
[2020-04-06] MEDS: FLUDROCORTISONE 0.1 MG TABLET PO SCH (08:49)
[2020-04-06] MEDS: FERROUS SULFATE 325 MG TABLET PO SCH (08:49)
[2020-04-06] MEDS: GABAPENTIN 600 MG TABLET PO SCH (08:50)
[2020-04-06] MEDS: RIVAROXABAN 20 MG TABLET PO SCH (08:50)
[2020-04-06 09:43] VITALS: BP 141/71
== END 2020-04-06 10:40 | DRG 644 ==
LOC: N.EDINP 15:15 → N.ED 15:15 → N.4E 19:36
PROVIDERS: ADMIT Family Medicine; ATTEND Family Medicine

== ENCOUNTER 2020-05-20 11:11 | Observation (INO) ==
[2020-05-20 13:01] LABS: Basophils % 0.1 % (0.0-0.8); Hematocrit 32.4 VOL% (42.0-52.0); Hemoglobin 10.8 GM/DL (14.0-18.0); Immature Granulocytes % 1.5 %; Immature Granulocytes Absolute 0.16 #; Lymphocytes # 0.8 10*3/uL (1.4-4.0); Mean Corpuscular HGB Conc 33.3 GM/DL (32-36); Mean Corpuscular Volume 97.6 FL (87-102); Mean Platelet Volume 9.2 FL (9.6-12.0); Monocytes % 5.2 % (1.7-12.7); NRBC # 0.04 10*3/uL; Neutrophils % 86.2 % (38.7-73.9); Platelet Count 162 T/CUMM (130-400); Red Blood Count 3.32 MC/CUMM (3.8-5.5); Red Cell Distribution Width 16.5 % (9.3-17.3); White Blood Count 10.9 T/CUMM (4-12)
[2020-05-20 13:45] LABS: Albumin 3.5 G/DL (3.4-5.0); Bilirubin,Total 0.9 MG/DL (0.2-1.0); Calcium 9.4 MG/DL (8.5-10.1); Osmolality,Calculated 269.4 MOS/KG (273-304); Thyroid Stimulating Hormone 23.1 uIU/ml (0.358-3.74); Total Protein 6.2 G/DL (6.4-8.3)
[2020-05-20 13:46] LABS: Bacteria,Urine Occasional /HPF (Few); Bilirubin,Urine Negative (Negative); Blood, Urine Negative (Negative); Glucose,Urine (UA) Negative (Negative); Hyaline Casts,Urine 16 /LPF (0-3); Ketones,Urine Negative (Negative); Mucus,Urine Occasional /LPF (Occasional); Nitrite,Urine Negative (Negative); Protein,Urine Negative; RBC,Urine 1 /HPF (0-4); Urine Appearance CLEAR (Clear); Urine Color Yellow (Yellow); Urine Specific Gravity 1.017 (1.001-1.035); Urine Urobilinogen < 2.0 EU/DL (0.2-1.0); WBC,Urine <1 /HPF (0-6)
[2020-05-20] MEDS ORDERED: DEXTROSE 50% 25 GM/50 ML VIAL IV PRN (14:57)
[2020-05-20] MEDS ORDERED: GLUCAGON 1 MG VIAL IM PRN (14:57)
[2020-05-20] MEDS ORDERED: ACETAMINOPHEN 325 MG TABLET PO PRN (14:57)
[2020-05-20] MEDS ORDERED: ONDANSETRON 4 MG/2 ML VIAL IV PRN (14:57)
[2020-05-20] MEDS ORDERED: metOLazone 2.5 MG TABLET PO SCH (15:00)
[2020-05-20] MEDS ORDERED: INFLUENZA VIRUS VACCINE 0.5 ML SYRINGE IM ONE (17:37)
[2020-05-20] MEDS: INSULIN LISPRO 100 UNIT/ML SUBCUT SCH ×2 (17:39→20:50)
[2020-05-20] MEDS: SODIUM CHLORIDE 0.45% 1,000 ML IV SCH (17:39)
[2020-05-20] MEDS: BUMETANIDE 1 MG TABLET PO SCH (17:53)
[2020-05-20] MEDS: INSULIN GLARGINE 100 UNIT/ML SUBCUT SCH (17:53)
[2020-05-20] MEDS: MAGNESIUM CHLORIDE 64 MG TABLET PO SCH ×2 (17:55→20:31)
[2020-05-20] MEDS: GABAPENTIN 600 MG TABLET PO SCH ×2 (17:55→20:32)
[2020-05-20] MEDS: ALBUTEROL/IPRATROPIUM 3 ML NEB RESP TX SCH (19:45)
[2020-05-20] MEDS: FLUDROCORTISONE 0.1 MG TABLET PO SCH (20:31)
[2020-05-20] MEDS: DOCUSATE SODIUM 100 MG CAPSULE PO SCH (20:31)
[2020-05-20] MEDS: POTASSIUM CHLORIDE 20 MEQ TABLET PO SCH (20:31)
[2020-05-20] MEDS: TAMSULOSIN 0.4 MG CAPSULE PO SCH (20:31)
[2020-05-20] MEDS: allopurinoL 100 MG TABLET PO SCH (20:32)
[2020-05-20] MEDS: SIMVASTATIN 20 MG TABLET PO SCH (20:32)
[2020-05-20] MEDS ORDERED: OMEPRAZOLE 20 MG CAPSULE PO SCH (21:00)
[2020-05-21] MEDS: ALBUTEROL/IPRATROPIUM 3 ML NEB RESP TX SCH ×4 (01:08→19:42)
[2020-05-21 05:04] LABS: Basophils % 0.2 % (0.0-0.8); Eosinophils % 0.2 % (0.00-10.9); Hematocrit 29.2 VOL% (42.0-52.0); Hemoglobin 9.6 GM/DL (14.0-18.0); Immature Granulocytes % 0.9 %; Immature Granulocytes Absolute 0.06 #; Lymphocytes # 0.6 10*3/uL (1.4-4.0); Lymphocytes % 9.7 % (21.2-54.2); Mean Corpuscular HGB Conc 32.9 GM/DL (32-36); Mean Platelet Volume 9.2 FL (9.6-12.0); Monocytes % 4.6 % (1.7-12.7); Neutrophils % 84.4 % (38.7-73.9); Platelet Count 115 T/CUMM (130-400); Red Blood Count 2.95 MC/CUMM (3.8-5.5); Red Cell Distribution Width 16.6 % (9.3-17.3); White Blood Count 6.6 T/CUMM (4-12)
[2020-05-21 05:26] LABS: Calcium 8.5 MG/DL (8.5-10.1); Osmolality,Calculated 273.8 MOS/KG (273-304)
[2020-05-21] MEDS: LEVOTHYROXINE 75 MCG TABLET PO SCH (06:06)
[2020-05-21] MEDS: INSULIN LISPRO 100 UNIT/ML SUBCUT SCH ×5 (07:39→21:28)
[2020-05-21] MEDS: FLUDROCORTISONE 0.1 MG TABLET PO SCH ×2 (09:16→21:21)
[2020-05-21] MEDS: RIVAROXABAN 20 MG TABLET PO SCH (09:16)
[2020-05-21] MEDS: MULTIVITAMIN (CENTRUM) TABLET PO SCH (09:16)
[2020-05-21] MEDS: BUMETANIDE 1 MG TABLET PO SCH ×3 (09:16→15:56)
[2020-05-21] MEDS: DIGOXIN 0.125 MG TABLET PO SCH (09:16)
[2020-05-21] MEDS: DOCUSATE SODIUM 100 MG CAPSULE PO SCH ×2 (09:17→21:20)
[2020-05-21] MEDS: sitaGLIPtin 100 MG TABLET PO SCH (09:17)
[2020-05-21] MEDS: SPIRONOLACTONE 25 MG TABLET PO SCH (09:17)
[2020-05-21] MEDS: PANTOPRAZOLE 40 MG TABLET PO SCH (09:17)
[2020-05-21] MEDS: predniSONE 10 MG TABLET PO SCH (09:17)
[2020-05-21] MEDS: POTASSIUM CHLORIDE 20 MEQ TABLET PO SCH ×2 (09:17→21:21)
[2020-05-21] MEDS: MAGNESIUM CHLORIDE 64 MG TABLET PO SCH ×3 (09:18→21:20)
[2020-05-21] MEDS: GABAPENTIN 600 MG TABLET PO SCH ×3 (09:18→21:20)
[2020-05-21] MEDS: CYANOCOBALAMIN 500 MCG TABLET PO SCH (09:18)
[2020-05-21] MEDS: IVERMECTIN TOP SCH (09:18)
[2020-05-21] MEDS: SODIUM CHLORIDE 0.45% 1,000 ML IV SCH (12:04)
[2020-05-21] MEDS: INSULIN GLARGINE 100 UNIT/ML SUBCUT SCH (17:15)
[2020-05-21] MEDS: allopurinoL 100 MG TABLET PO SCH (21:20)
[2020-05-21] MEDS: TAMSULOSIN 0.4 MG CAPSULE PO SCH (21:21)
[2020-05-21] MEDS: SIMVASTATIN 20 MG TABLET PO SCH (21:21)
[2020-05-22] MEDS: ALBUTEROL/IPRATROPIUM 3 ML NEB RESP TX SCH ×3 (01:24→14:42)
[2020-05-22] MEDS: LEVOTHYROXINE 75 MCG TABLET PO SCH (06:35)
[2020-05-22] MEDS: SODIUM CHLORIDE 0.45% 1,000 ML IV SCH (06:35)
[2020-05-22] MEDS: INSULIN LISPRO 100 UNIT/ML SUBCUT SCH ×3 (09:19→16:41)
[2020-05-22] MEDS: GABAPENTIN 600 MG TABLET PO SCH ×2 (09:21→16:40)
[2020-05-22] MEDS: POTASSIUM CHLORIDE 20 MEQ TABLET PO SCH (09:22)
[2020-05-22] MEDS: PANTOPRAZOLE 40 MG TABLET PO SCH (09:22)
[2020-05-22] MEDS: DOCUSATE SODIUM 100 MG CAPSULE PO SCH (09:22)
[2020-05-22] MEDS: SPIRONOLACTONE 25 MG TABLET PO SCH (09:22)
[2020-05-22] MEDS: predniSONE 10 MG TABLET PO SCH (09:22)
[2020-05-22] MEDS: CYANOCOBALAMIN 500 MCG TABLET PO SCH (09:23)
[2020-05-22] MEDS: BUMETANIDE 1 MG TABLET PO SCH ×2 (09:23→16:40)
[2020-05-22] MEDS: DIGOXIN 0.125 MG TABLET PO SCH (09:23)
[2020-05-22] MEDS: MAGNESIUM CHLORIDE 64 MG TABLET PO SCH ×2 (09:23→16:40)
[2020-05-22] MEDS: RIVAROXABAN 20 MG TABLET PO SCH (09:23)
[2020-05-22] MEDS: MULTIVITAMIN (CENTRUM) TABLET PO SCH (09:24)
[2020-05-22] MEDS: FLUDROCORTISONE 0.1 MG TABLET PO SCH (09:24)
[2020-05-22] MEDS: sitaGLIPtin 100 MG TABLET PO SCH (09:24)
[2020-05-22] MEDS: IVERMECTIN TOP SCH (09:25)
[2020-05-22 16:26] VITALS: BP 123/78
[2020-05-22] MEDS: INSULIN GLARGINE 100 UNIT/ML SUBCUT SCH (16:42)
[2020-05-22] MEDS ORDERED: PANTOPRAZOLE 40 MG TABLET PO SCH (18:30)
== END 2020-05-22 17:30 | disposition home or self-care (01) ==
LOC: N.ED 11:11 → N.EDINP 11:11 → N.5E 16:50
PROVIDERS: ADMIT Family Medicine; ATTEND Family Medicine